=== PATIENT | female | born 1945 | race Caucasian/White ===

== ENCOUNTER 2017-01-08 11:24 | Day surgery (SDC) | payer OTHER ==
[2017-01-08 12:39] VITALS: BMI 29.2
[2017-01-08] MEDS ORDERED: LIDOCAINE HCL/PF 2% SDV 5ML VIAL ONE (13:33)
[2017-01-08] MEDS ORDERED: PROPOFOL 20 ML ONE ×2 (13:33)
[2017-01-08 14:10] VITALS: TEMP 97.7
[2017-01-08 14:40] VITALS: BP 115/53; PULSE 68
--- NOTE | 2017-01-10 11:00 | PATH ---
Surgical Pathology Report Patient Name: SRAVAN HOLLIS [facility]. Rec. #: [id number] /Age/Gender: 1945 (Age: 71) / F Account: [id number] Location: U-ENDOSCOPY Taken: 01/08/2017 Received: 01/09/2017 Reported: 01/10/2017 Physicians: Edgardo Dias M.D. Specimen(s) Received A: BX GASTRIC CARDIA B: BX GASTRIC BODY Clinical History Erosive gastritis, hiatal hernia Final Diagnosis A. STOMACH, CARDIA, BIOPSY: MODERATE CHRONIC ACTIVE GASTRITIS WITH INTESTINAL METAPLASIA. NO DYSPLASIA IDENTIFIED. IMMUNOSTAIN FOR H. PYLORI IS POSITIVE (MANY ORGANISMS). B. STOMACH, BODY, BIOPSY: MODERATE TO SEVERE CHRONIC ACTIVE GASTRITIS WITH INTESTINAL METAPLASIA. NO DYSPLASIA IDENTIFIED. IMMUNOSTAIN FOR H. PYLORI IS POSITIVE (MANY ORGANISMS). Electronically Signed Isaac Reyez M.D. Gross Description A. Received in formalin, labeled "biopsy gastric cardia" is a rasheed, irregular portion of soft tissue measuring 0.3 cm. in greatest dimension. The specimen is submitted in toto in one cassette. B. Received in formalin, labeled "biopsy gastric body" is a rasheed, irregular portion of soft tissue measuring 0.3 cm. in greatest dimension. The specimen is submitted in toto in one cassette. 01/09/2017 saudi01/09/2017
== END 2017-01-08 15:04 | disposition home or self-care (01) ==
LOC: JASU-ENDO 11:24
PROVIDERS: ATTEND Internal Medicine Gastroenterology
PROC: 0DB68ZX Excision of Stomach, Via Natural or Artificial Opening Endoscopic, Diagnostic (ICD-10-PCS; principal; 2017-01-08 12:30)
DX: K29.70 Gastritis, unspecified, without bleeding (principal); K44.9 Diaphragmatic hernia without obstruction or gangrene; K25.9 Gastric ulcer, unspecified as acute or chronic, without hemorrhage or perforation
CPT/HCPCS: 88305-TC; 88342-TC

== ENCOUNTER 2021-07-28 14:38 | Inpatient (IN) | payer OTHER ==
[2021-07-28] MEDS ORDERED: DEXAMETHASONE SOD PHOSPHATE 10 MG/1 ML VIAL IVPUSH ONE (15:48)
[2021-07-28] MEDS ORDERED: DEXAMETHASONE SOD PHOSPHATE 10 MG/1 ML VIAL ONE (16:19)
[2021-07-28 16:22] LABS: BASO % 0.3 % (0-2.0); HEMATOCRIT 36.5 % (32.4-45.2); HEMOGLOBIN 12.9 GM/dL (10.7-15.3); LYMPH % 13.1 % (8-40); MCH 31.7 pg (25.7-33.7); MCHC 35.3 g/dl (32.0-36.0); MEAN CELL VOLUME 89.9 fl (80-96); MONO % 12.8 % (3.8-10.2); NEUT % 73.8 % (42.8-82.8); PLATELET COUNT 145 10^3/uL (134-434); RBC 4.06 M/mm3 (3.60-5.2)
[2021-07-28 16:30] LABS: INR 1.3 (0.83-1.09); PROTHROMBIN TIME (PATIENT) 14.6 SEC (9.7-13.0)
[2021-07-28 16:33] LABS: ACTIVATED PTT 34.4 SECONDS (25.2-36.5)
[2021-07-28 16:35] LABS: VENOUS BASE EXCESS -4.1 mmol/L (-2-2); VENOUS O2 SATURATION 55.9 % (70-80); VENOUS PCO2 32.7 mmHg (38-52); VENOUS PH 7.399 (7.310-7.410)
[2021-07-28 16:37] LABS: CHLORIDE 105 mmol/L (98-107); SODIUM 137 mmol/L (136-145)
[2021-07-28 16:39] LABS: CALCIUM 8.7 mg/dL (8.5-10.1)
[2021-07-28 16:40] LABS: ALBUMIN 3.4 g/dl (3.4-5.0); ANION GAP 12 MMOL/L (8-16); BLOOD UREA NITROGEN 51.2 mg/dL (7-18); CO2 20 mmol/L (21-32); GLUCOSE,RANDOM 96 mg/dL (74-106)
[2021-07-28 16:42] LABS: BILIRUBIN,DIRECT 0.3 mg/dL (0.0-0.2); CREATININE 1.8 mg/dL (0.55-1.3)
[2021-07-28 16:43] LABS: SGOT/AST 102 U/L (15-37); SGPT/ALT 53 U/L (13-61)
[2021-07-28 16:44] LABS: BILIRUBIN,TOTAL 0.5 mg/dL (0.2-1); LDH 532 U/L (84-246); TOT PROT 7.8 g/dl (6.4-8.2)
[2021-07-28 16:45] LABS: ALK PHOS 89 U/L (45-117)
[2021-07-28] MEDS ORDERED: LACTATED RINGERS SOLUTION 1000 ML INFUS.BAG IV ONE (16:45)
[2021-07-28] MEDS: SODIUM CHLORIDE 1,000 ML IV SCH (17:35)
[2021-07-28] MEDS ORDERED: ALBUTEROL SO4 HFA INHALER IH PRN (18:50)
[2021-07-28] MEDS ORDERED: ACETAMINOPHEN 325 MG TABLET (FP) PO PRN (19:00)
[2021-07-28] MEDS ORDERED: OSELTAMIVIR PHOSPHATE 75 MG CAPSULE PO SCH ×2 (22:00)
[2021-07-28] MEDS: HEPARIN NA (PORCINE) 5,000 UNITS/ML 1ML VIAL SQ SCH (23:10)
[2021-07-29] MEDS: BUDESONIDE/FORMETEROL FUMARATE 80/4.5 mcg INHALER IH SCH ×3 (01:10→22:10)
[2021-07-29] MEDS: OSELTAMIVIR PHOSPHATE 30 MG CAPSULE PO SCH ×3 (01:10→22:10)
[2021-07-29] MEDS: HEPARIN NA (PORCINE) 5,000 UNITS/ML 1ML VIAL SQ SCH ×3 (05:42→22:10)
[2021-07-29] MEDS ORDERED: guaiFENesin 200 MG/10 ML 10 ML UNIT-DOSE CUPS PO PRN (05:43)
[2021-07-29] MEDS: DEXAMETHASONE 4 MG TABLET (FP) PO SCH (11:27)
[2021-07-29 12:27] LABS: BASO % 0.1 % (0-2.0); HEMATOCRIT 36.8 % (32.4-45.2); HEMOGLOBIN 12.8 GM/dL (10.7-15.3); LYMPH % 10.7 % (8-40); MCH 31.4 pg (25.7-33.7); MCHC 34.7 g/dl (32.0-36.0); MEAN CELL VOLUME 90.5 fl (80-96); MEAN PLT VOLUME 10.2 fl (7.5-11.1); MONO % 4.9 % (3.8-10.2); NEUT % 84.3 % (42.8-82.8); PLATELET COUNT 162 10^3/uL (134-434); RBC 4.07 M/mm3 (3.60-5.2); RDW 12.9 % (11.6-15.6); WHITE BLOOD COUNT 7.5 K/mm3 (4.0-10.0)
[2021-07-29] MEDS ORDERED: REMDESIVIR 200 MG in SODIUM CHLORIDE 250 ML IVPB ONE ×2 (13:00→16:00)
[2021-07-29 13:12] LABS: ALBUMIN 2.9 g/dl (3.4-5.0); BLOOD UREA NITROGEN 31.4 mg/dL (7-18); CALCIUM 8.5 mg/dL (8.5-10.1); MAGNESIUM 2.4 mg/dL (1.8-2.4)
[2021-07-29 13:15] LABS: CREATININE 0.9 mg/dL (0.55-1.3)
[2021-07-29 13:17] LABS: BILIRUBIN,TOTAL 0.4 mg/dL (0.2-1); TOT PROT 6.9 g/dl (6.4-8.2)
[2021-07-29] MEDS ORDERED: AZTREONAM 0.5 GM in DEXTROSE 5%-WATER - 50 ML IVPB ONE (16:54)
[2021-07-29] MEDS: SODIUM CHLORIDE 1,000 ML IV SCH (17:25)
[2021-07-29] MEDS ORDERED: PT OWN MED DRAWER 7, Y5N ONE (22:08)
[2021-07-30] MEDS: HEPARIN NA (PORCINE) 5,000 UNITS/ML 1ML VIAL SQ SCH (06:27)
[2021-07-30] MEDS ORDERED: PT OWN MED DRAWER 7, Y5N ONE ×2 (10:17→21:17)
[2021-07-30] MEDS: DEXAMETHASONE 4 MG TABLET (FP) PO SCH (10:18)
[2021-07-30] MEDS: OSELTAMIVIR PHOSPHATE 30 MG CAPSULE PO SCH ×2 (10:19→21:26)
[2021-07-30] MEDS: BUDESONIDE/FORMETEROL FUMARATE 80/4.5 mcg INHALER IH SCH ×2 (10:20→21:25)
[2021-07-30] MEDS ORDERED: TOCILIZUMAB (ACTEMRA) 200 MG/10 ML VIAL IVPB ONE (11:45)
[2021-07-30] MEDS ORDERED: TOCILIZUMAB IVPB ONE (12:30)
[2021-07-30] MEDS ORDERED: SODIUM CHLORIDE IVPB ONE (12:30)
[2021-07-30] MEDS ORDERED: REMDESIVIR 100 MG in SODIUM CHLORIDE 250 ML IVPB SCH (13:00)
[2021-07-30] MEDS: REMDESIVIR 100 MG in SODIUM CHLORIDE 250 ML IVPB SCH (14:03)
[2021-07-30] MEDS: ENOXAPARIN NA (PORCINE) 40 MG/0.4 ML DISP.SYRIN SQ SCH (21:25)
[2021-07-30] MEDS: SODIUM CHLORIDE 1,000 ML IV SCH (21:26)
[2021-07-31] MEDS ORDERED: LORazepam 2 MG/ML SDV VIAL IVPUSH ONE ×2 (03:03→05:53)
[2021-07-31 07:21] LABS: ARTERIAL BLD GAS O2 SATURATION 95.9 % (95-98); ARTERIAL BLOOD GAS BASE EXCESS -3.9 mmol/L (-2-2); ARTERIAL BLOOD GAS PO2 89.8 mmHg (80-100); ARTERIAL BLOOD GAS pH 7.289 (7.350-7.450)
[2021-07-31 07:25] LABS: ALLENS TEST POSITIVE; VENT MODE S/T; VENT RATE 14
[2021-07-31] MEDS ORDERED: DEXMEDETOMIDINE IN 0.9 % NACL 400 MCG/100 ML VIAL IVPB SCH (09:00)
[2021-07-31] MEDS: MUPIROCIN 2% TOPICAL OINTMENT FOR DECOLONIZATION NS SCH ×2 (09:51→20:59)
[2021-07-31] MEDS: BUDESONIDE/FORMETEROL FUMARATE 80/4.5 mcg INHALER IH SCH ×2 (09:52→20:59)
[2021-07-31] MEDS: ENOXAPARIN NA (PORCINE) 40 MG/0.4 ML DISP.SYRIN SQ SCH ×2 (09:52→20:59)
[2021-07-31] MEDS ORDERED: DEXAMETHASONE SOD PHOSPHATE 10 MG/1 ML VIAL IVPUSH SCH (10:00)
[2021-07-31 11:30] LABS: HEMOGLOBIN 12.3 GM/dL (10.7-15.3); MCH 31.3 pg (25.7-33.7); MCHC 34.1 g/dl (32.0-36.0); MEAN CELL VOLUME 91.9 fl (80-96); MEAN PLT VOLUME 10.1 fl (7.5-11.1); PLATELET COUNT 220 10^3/uL (134-434); RBC 3.91 M/mm3 (3.60-5.2); RDW 13.1 % (11.6-15.6); WHITE BLOOD COUNT 12.9 K/mm3 (4.0-10.0)
[2021-07-31 11:58] LABS: CALCIUM 7.3 mg/dL (8.5-10.1)
[2021-07-31 11:59] LABS: BLOOD UREA NITROGEN 30.7 mg/dL (7-18)
[2021-07-31 12:03] LABS: BILIRUBIN,TOTAL 0.7 mg/dL (0.2-1); TOT PROT 5.4 g/dl (6.4-8.2)
[2021-07-31 12:37] LABS: ANISOCYTOSIS 1+; MACROCYTOSIS 1+; OVALOCYTE 1+; PLATELET ESTIMATE NORMAL
[2021-07-31] MEDS ORDERED: DOPAMINE 400 MG/D5W - 400,000 MCG/250 ML INFUS.BAG IVPB ONE (13:17)
[2021-07-31] MEDS ORDERED: PHENYLEPHRINE HCL 10 MG/1 ML SINGLE DOSE VIAL ONE (13:19)
[2021-07-31] MEDS ORDERED: LORazepam 2 MG/ML SDV VIAL ONE (13:42)
[2021-07-31] MEDS ORDERED: HALOPERIDOL LACTATE 5 MG/ML IM ONE (14:15)
[2021-07-31] MEDS ORDERED: HALOPERIDOL LACTATE 5 MG/ML IM PRN (14:19)
[2021-07-31] MEDS: OSELTAMIVIR PHOSPHATE 30 MG CAPSULE PO SCH ×2 (14:41→20:59)
[2021-07-31] MEDS ORDERED: PT OWN MED DRAWER 7, Y5N ONE (14:45)
[2021-07-31] MEDS: REMDESIVIR 100 MG in SODIUM CHLORIDE 250 ML IVPB SCH (14:45)
[2021-07-31 15:34] LABS: ARTERIAL BLD GAS O2 SATURATION 90.9 % (95-98); ARTERIAL BLOOD GAS BASE EXCESS -6.2 mmol/L (-2-2); ARTERIAL BLOOD GAS PO2 65.2 mmHg (80-100); ARTERIAL BLOOD GAS pH 7.302 (7.350-7.450)
[2021-07-31 15:36] LABS: VENT RATE 20
[2021-07-31] MEDS ORDERED: SODIUM CHLORIDE 0.45% 1,000 ML IV SCH (15:45)
[2021-07-31 19:06] LABS: EPI CELLS >36 /uL (0-25.1); HYALINE CASTS 8 /uL (0-3.1); PH,URINE 5.5 (5.0-8.0); URINE APPEARANCE CLOUDY; URINE BACTERIA 31 /uL (0-1359); URINE BILIRUBIN NEGATIVE (NEGATIVE); URINE COLOR YELLOW; URINE GLUCOSE (UA) TRACE (NEGATIVE); URINE KETONE NEGATIVE (NEGATIVE); URINE LEUK ESTERASE NEGATIVE (NEGATIVE); URINE NITRITE NEGATIVE (NEGATIVE); URINE PROTEIN 1+ (NEGATIVE); URINE RBC 337 /uL (0-23.9); URINE WBC 43 /uL (0-25.8)
[2021-07-31] MEDS: DOPAMINE 400 MG/D5W - 400,000 MCG/250 ML INFUS.BAG IVPB SCH (19:34)
[2021-07-31] MEDS: CHLORHEXIDINE GLUCONATE 4% CLEANSER FOR DECOLONIZATION TP SCH (20:59)
[2021-07-31 22:39] LABS: ARTERIAL BLD GAS O2 SATURATION 89.3 % (95-98); ARTERIAL BLOOD GAS BASE EXCESS -5.6 mmol/L (-2-2); ARTERIAL BLOOD GAS PO2 58.2 mmHg (80-100); ARTERIAL BLOOD GAS pH 7.353 (7.350-7.450)
[2021-07-31] MEDS ORDERED: MIDAZOLAM IN 0.9 % SOD.CHLORID 1 MG/1 ML PLAST..BAG ONE (22:57)
[2021-07-31] MEDS ORDERED: PROPOFOL 1,000,000 MCG/100 ML VIAL IVPUSH SCH (23:00)
[2021-07-31] MEDS: MIDAZOLAM IN 0.9 % SOD.CHLORID 100 MG/100 ML PLAST..BAG IVPB SCH (23:00)
[2021-07-31] MEDS ORDERED: PROPOFOL 1,000,000 MCG/100 ML VIAL ONE (23:16)
[2021-07-31] MEDS: NOREPINEPHRINE BITARTRATE 16,000 MCG in DEXTROSE 5%-WATER - 16,000 MCG/500 ML INFUS.BAG IVPB SCH (23:30)
[2021-07-31] MEDS ORDERED: FENTANYL NS IVPB 500 MCG/100 ML BAG IVPB ONE (23:44)
[2021-08-01 01:17] LABS: ARTERIAL BLD GAS O2 SATURATION 92.5 % (95-98); ARTERIAL BLOOD GAS BASE EXCESS -8.9 mmol/L (-2-2); ARTERIAL BLOOD GAS PO2 75.4 mmHg (80-100); ARTERIAL BLOOD GAS pH 7.229 (7.350-7.450)
[2021-08-01] MEDS ORDERED: LACTATED RINGERS SOLUTION 1,000 ML/1,000 ML INFUS.BAG IV ONE (01:17)
[2021-08-01 01:19] LABS: ALLENS TEST POSITIVE; VENT MODE A/C
[2021-08-01 01:20] LABS: VENT RATE 18
[2021-08-01] MEDS: VECURONIUM BROMIDE 100 MG/100 ML BAG IVPB SCH (01:22)
[2021-08-01] MEDS ORDERED: VASOPRESSIN 20 UNITS/ML VIAL IV ONE (03:00)
[2021-08-01] MEDS: VASOPRESSIN 40 UNITS/100 ML BAG IV SCH (03:08)
[2021-08-01 06:59] LABS: HEMATOCRIT 38.3 % (32.4-45.2); HEMOGLOBIN 13.2 GM/dL (10.7-15.3); MCH 31.6 pg (25.7-33.7); MCHC 34.3 g/dl (32.0-36.0); MEAN PLT VOLUME 10.4 fl (7.5-11.1); PLATELET COUNT 292 10^3/uL (134-434); RBC 4.17 M/mm3 (3.60-5.2); RDW 13.3 % (11.6-15.6)
[2021-08-01 07:00] LABS: ARTERIAL BLD GAS O2 SATURATION 96.6 % (95-98); ARTERIAL BLOOD GAS BASE EXCESS -10.3 mmol/L (-2-2); ARTERIAL BLOOD GAS PO2 113.6 mmHg (80-100)
[2021-08-01 07:10] LABS: WHITE BLOOD COUNT 32.4 K/mm3 (4.0-10.0)
[2021-08-01 07:14] LABS: ALLENS TEST POSITIVE; ARTERIAL BLOOD GAS pH 7.134 (7.350-7.450); VENT MODE A/C; VENT RATE 18
[2021-08-01 07:15] LABS: BLOOD UREA NITROGEN 43.8 mg/dL (7-18); CALCIUM 8.1 mg/dL (8.5-10.1)
[2021-08-01 07:16] LABS: MAGNESIUM 2.3 mg/dL (1.8-2.4)
[2021-08-01 07:18] LABS: CREATININE 1.1 mg/dL (0.55-1.3)
[2021-08-01 07:20] LABS: BILIRUBIN,TOTAL 0.5 mg/dL (0.2-1); TOT PROT 6.2 g/dl (6.4-8.2)
[2021-08-01 07:57] LABS: ALBUMIN 2.6 g/dl (3.4-5.0)
[2021-08-01] MEDS ORDERED: PT OWN MED DRAWER 7, Y5N ONE ×3 (07:57→21:17)
[2021-08-01 08:46] LABS: ANISOCYTOSIS 0; HELMET CELLS 0; HOWELL-JOLLY BODIES 0; MACROCYTOSIS 0; OVALOCYTE 0; PLATELET ESTIMATE NORMAL; ROULEAU 0; SICKELED CELLS 0; TARGET CELLS 0; TEAR DROP CELLS 0; TOXIC GRANULATION 0
[2021-08-01] MEDS ORDERED: DEXAMETHASONE SOD PHOSPHATE 10 MG/1 ML VIAL IVPB SCH (09:30)
[2021-08-01] MEDS ORDERED: MEROPENEM 1 GM VIAL (RESTRICTED TO ID) IVPB ONE ×2 (09:34→21:16)
[2021-08-01] MEDS ORDERED: DEXTROSE 5%-WATER 100 ML IVPB ONE ×2 (09:34→21:16)
[2021-08-01] MEDS: DEXAMETHASONE SOD PHOSPHATE 10 MG/1 ML VIAL IVPB SCH (09:45)
[2021-08-01] MEDS: FLUDROCORTISONE ACETATE 0.1 MG TABLET (FP) PO SCH (09:46)
[2021-08-01] MEDS: ENOXAPARIN NA (PORCINE) 40 MG/0.4 ML DISP.SYRIN SQ SCH ×2 (09:46→22:00)
[2021-08-01] MEDS: OSELTAMIVIR PHOSPHATE 30 MG CAPSULE PO SCH ×2 (09:46→22:01)
[2021-08-01] MEDS: BUDESONIDE/FORMETEROL FUMARATE 80/4.5 mcg INHALER IH SCH ×2 (09:47→22:01)
[2021-08-01] MEDS: PROPOFOL 1,000,000 MCG/100 ML VIAL IVPB SCH (09:48)
[2021-08-01] MEDS: MEROPENEM 1 GM in DEXTROSE 5%-WATER 100 ML IVPB SCH ×2 (09:48→22:00)
[2021-08-01] MEDS: MUPIROCIN 2% TOPICAL OINTMENT FOR DECOLONIZATION NS SCH ×2 (09:49→22:00)
[2021-08-01] MEDS ORDERED: FAMOTIDINE 20 MG TABLET NGT SCH (11:15)
[2021-08-01 12:34] LABS: EPI CELLS 6 /uL (0-25.1); HYALINE CASTS 2 /uL (0-3.1); PH,URINE 5.5 (5.0-8.0); URINE APPEARANCE CLOUDY; URINE BACTERIA 6 /uL (0-1359); URINE BILIRUBIN NEGATIVE (NEGATIVE); URINE COLOR YELLOW; URINE GLUCOSE (UA) NEGATIVE (NEGATIVE); URINE KETONE TRACE (NEGATIVE); URINE LEUK ESTERASE NEGATIVE (NEGATIVE); URINE NITRITE NEGATIVE (NEGATIVE); URINE PROTEIN 1+ (NEGATIVE); URINE RBC 88 /uL (0-23.9); URINE WBC 9 /uL (0-25.8)
[2021-08-01] MEDS: PANTOPRAZOLE SODIUM 40 MG VIAL IVPUSH SCH (13:55)
[2021-08-01] MEDS: REMDESIVIR 100 MG in SODIUM CHLORIDE 250 ML IVPB SCH (15:44)
[2021-08-01 20:01] LABS: HIV INTERPRETATION NEGATIVE (NEGATIVE)
[2021-08-01] MEDS: CHLORHEXIDINE GLUCONATE 4% CLEANSER FOR DECOLONIZATION TP SCH (22:00)
[2021-08-01] MEDS: DOPAMINE 400 MG/D5W - 400,000 MCG/250 ML INFUS.BAG IVPB SCH (22:00)
[2021-08-02 06:28] LABS: ARTERIAL BLD GAS O2 SATURATION 94.1 % (95-98); ARTERIAL BLOOD GAS BASE EXCESS -5.6 mmol/L (-2-2); ARTERIAL BLOOD GAS PO2 85.4 mmHg (80-100); ARTERIAL BLOOD GAS pH 7.208 (7.350-7.450)
[2021-08-02] MEDS: VECURONIUM BROMIDE 100 MG/100 ML BAG IVPB SCH (06:36)
[2021-08-02] MEDS: MIDAZOLAM IN 0.9 % SOD.CHLORID 100 MG/100 ML PLAST..BAG IVPB SCH ×2 (06:36→10:05)
[2021-08-02] MEDS: NOREPINEPHRINE BITARTRATE 16,000 MCG in DEXTROSE 5%-WATER - 16,000 MCG/500 ML INFUS.BAG IVPB SCH (06:36)
[2021-08-02] MEDS: VASOPRESSIN 40 UNITS/100 ML BAG IV SCH (06:36)
[2021-08-02] MEDS: PROPOFOL 1,000,000 MCG/100 ML VIAL IVPB SCH ×2 (06:36→17:30)
[2021-08-02 06:49] LABS: ALLENS TEST POSITIVE; VENT MODE A/C; VENT RATE 24
[2021-08-02 07:20] LABS: HEMATOCRIT 39.5 % (32.4-45.2); HEMOGLOBIN 12.6 GM/dL (10.7-15.3); MCH 30.1 pg (25.7-33.7); MEAN PLT VOLUME 10.1 fl (7.5-11.1); PLATELET COUNT 287 10^3/uL (134-434); RDW 13.3 % (11.6-15.6)
[2021-08-02 07:31] LABS: BLOOD UREA NITROGEN 35.3 mg/dL (7-18); CALCIUM 8.1 mg/dL (8.5-10.1); MAGNESIUM 2.4 mg/dL (1.8-2.4)
[2021-08-02 07:35] LABS: BILIRUBIN,TOTAL 0.4 mg/dL (0.2-1)
[2021-08-02 07:37] LABS: WHITE BLOOD COUNT 32.8 K/mm3 (4.0-10.0)
[2021-08-02 07:41] LABS: ALBUMIN 2.6 g/dl (3.4-5.0)
[2021-08-02] MEDS ORDERED: ALBUTEROL SO4 HFA INHALER IH PRN (08:00)
[2021-08-02] MEDS ORDERED: guaiFENesin 200 MG/10 ML 10 ML UNIT-DOSE CUPS PO PRN (08:00)
[2021-08-02] MEDS ORDERED: INSULIN (LEVEMIR) 100 UNITS/ML UNITS SQ ONE (08:41)
[2021-08-02 08:54] LABS: ANISOCYTOSIS 0; HELMET CELLS 0; HOWELL-JOLLY BODIES 0; MACROCYTOSIS 0; OVALOCYTE 0; PLATELET ESTIMATE NORMAL; ROULEAU 0; SICKELED CELLS 0; TARGET CELLS 0; TEAR DROP CELLS 0; TOXIC GRANULATION 0
[2021-08-02] MEDS ORDERED: OSELTAMIVIR PHOSPHATE 30 MG CAPSULE PO SCH (10:00)
[2021-08-02] MEDS ORDERED: PT OWN MED DRAWER 7, Y5N ONE (10:01)
[2021-08-02] MEDS: MUPIROCIN 2% TOPICAL OINTMENT FOR DECOLONIZATION NS SCH ×2 (10:02→22:37)
[2021-08-02] MEDS: DEXAMETHASONE SOD PHOSPHATE 10 MG/1 ML VIAL IVPB SCH (10:03)
[2021-08-02] MEDS: PANTOPRAZOLE SODIUM 40 MG VIAL IVPUSH SCH (10:06)
[2021-08-02] MEDS: BUDESONIDE/FORMETEROL FUMARATE 80/4.5 mcg INHALER IH SCH ×2 (10:06→22:38)
[2021-08-02] MEDS: FLUDROCORTISONE ACETATE 0.1 MG TABLET (FP) PO SCH (10:06)
[2021-08-02] MEDS: ENOXAPARIN NA (PORCINE) 40 MG/0.4 ML DISP.SYRIN SQ SCH ×2 (10:06→22:37)
[2021-08-02] MEDS: INSULIN SLIDING SCALE (NOVOLOG) 1 VIAL SQ SCH ×3 (12:19→22:37)
[2021-08-02] MEDS ORDERED: REMDESIVIR 100 MG in SODIUM CHLORIDE 250 ML IVPB SCH (13:00)
[2021-08-02] MEDS ORDERED: MEROPENEM 1 GM VIAL (RESTRICTED TO ID) IVPB ONE (14:25)
[2021-08-02] MEDS ORDERED: DEXTROSE 5%-WATER 100 ML IVPB ONE (14:26)
[2021-08-02] MEDS: MEROPENEM 1 GM in DEXTROSE 5%-WATER 100 ML IVPB SCH (14:32)
[2021-08-02] MEDS: AMINO ACIDS/PROTEIN HYDROLYS 30 ML LIQUID.PKT GT SCH (17:31)
[2021-08-02] MEDS: CHLORHEXIDINE GLUCONATE 4% CLEANSER FOR DECOLONIZATION TP SCH (22:37)
[2021-08-03] MEDS ORDERED: MEROPENEM 1 GM VIAL (RESTRICTED TO ID) IVPB ONE ×2 (01:06→13:16)
[2021-08-03] MEDS ORDERED: DEXTROSE 5%-WATER 100 ML IVPB ONE ×2 (01:07→13:16)
[2021-08-03] MEDS: MEROPENEM 1 GM in DEXTROSE 5%-WATER 100 ML IVPB SCH ×2 (01:08→13:30)
[2021-08-03] MEDS: NOREPINEPHRINE BITARTRATE 16,000 MCG in DEXTROSE 5%-WATER - 16,000 MCG/500 ML INFUS.BAG IVPB SCH ×2 (03:46→16:27)
[2021-08-03] MEDS: MIDAZOLAM IN 0.9 % SOD.CHLORID 100 MG/100 ML PLAST..BAG IVPB SCH ×2 (03:46→16:27)
[2021-08-03] MEDS: PROPOFOL 1,000,000 MCG/100 ML VIAL IVPB SCH ×4 (03:48→23:20)
[2021-08-03 06:31] LABS: ARTERIAL BLD GAS O2 SATURATION 91.5 % (95-98); ARTERIAL BLOOD GAS BASE EXCESS 2.1 mmol/L (-2-2); ARTERIAL BLOOD GAS PO2 63.9 mmHg (80-100); ARTERIAL BLOOD GAS pH 7.367 (7.350-7.450)
[2021-08-03] MEDS: INSULIN SLIDING SCALE (NOVOLOG) 1 VIAL SQ SCH ×4 (06:37→21:44)
[2021-08-03 06:44] LABS: VENT MODE V-A/C; VENT RATE 24
[2021-08-03 07:24] LABS: HEMATOCRIT 36.2 % (32.4-45.2); HEMOGLOBIN 12.1 GM/dL (10.7-15.3); MCH 30.9 pg (25.7-33.7); MCHC 33.5 g/dl (32.0-36.0); MEAN CELL VOLUME 92.3 fl (80-96); MEAN PLT VOLUME 10.5 fl (7.5-11.1); PLATELET COUNT 230 10^3/uL (134-434); RBC 3.92 M/mm3 (3.60-5.2)
[2021-08-03 07:37] LABS: WHITE BLOOD COUNT 21.3 K/mm3 (4.0-10.0)
[2021-08-03 07:52] LABS: CALCIUM 8.3 mg/dL (8.5-10.1)
[2021-08-03 07:54] LABS: BLOOD UREA NITROGEN 34.7 mg/dL (7-18); MAGNESIUM 2.4 mg/dL (1.8-2.4)
[2021-08-03 07:56] LABS: CREATININE 0.9 mg/dL (0.55-1.3); PHOSPHOROUS 1.6 mg/dL (2.5-4.9)
[2021-08-03 07:58] LABS: BILIRUBIN,TOTAL 0.4 mg/dL (0.2-1); TOT PROT 5.3 g/dl (6.4-8.2)
[2021-08-03 08:03] LABS: ALBUMIN 2.4 g/dl (3.4-5.0)
[2021-08-03] MEDS: AMINO ACIDS/PROTEIN HYDROLYS 30 ML LIQUID.PKT GT SCH ×2 (08:43→17:07)
[2021-08-03 08:51] LABS: ANISOCYTOSIS 0; MACROCYTOSIS 0; PLATELET ESTIMATE NORMAL; ROULEAU 1+
[2021-08-03] MEDS ORDERED: PT OWN MED DRAWER 7, Y5N ONE (09:58)
[2021-08-03] MEDS: FLUDROCORTISONE ACETATE 0.1 MG TABLET (FP) PO SCH (09:59)
[2021-08-03] MEDS: DEXAMETHASONE SOD PHOSPHATE 10 MG/1 ML VIAL IVPB SCH (09:59)
[2021-08-03] MEDS: ENOXAPARIN NA (PORCINE) 40 MG/0.4 ML DISP.SYRIN SQ SCH ×2 (09:59→21:43)
[2021-08-03] MEDS: MUPIROCIN 2% TOPICAL OINTMENT FOR DECOLONIZATION NS SCH ×2 (09:59→21:44)
[2021-08-03] MEDS: PANTOPRAZOLE SODIUM 40 MG VIAL IVPUSH SCH (10:00)
[2021-08-03] MEDS: BUDESONIDE/FORMETEROL FUMARATE 80/4.5 mcg INHALER IH SCH ×2 (10:00→21:44)
[2021-08-03] MEDS: REMDESIVIR 100 MG in SODIUM CHLORIDE 250 ML IVPB SCH (13:30)
[2021-08-03] MEDS ORDERED: SODIUM PHOSPHATE - 20 MM in DEXTROSE 5%-WATER - 250 ML IVPB ONE (15:15)
[2021-08-03] MEDS: CHLORHEXIDINE GLUCONATE 4% CLEANSER FOR DECOLONIZATION TP SCH (21:44)
[2021-08-03] MEDS ORDERED: DEXTROSE 50%-WATER - 25 GM/50 ML VIAL IVPUSH ONE (21:52)
[2021-08-03] MEDS: INSULIN (LEVEMIR) 100 UNITS/ML UNITS SQ SCH (22:50)
[2021-08-04] MEDS ORDERED: MEROPENEM 1 GM VIAL (RESTRICTED TO ID) IVPB ONE ×2 (01:33→13:15)
[2021-08-04] MEDS ORDERED: DEXTROSE 5%-WATER 100 ML IVPB ONE ×2 (01:33→13:16)
[2021-08-04] MEDS: MEROPENEM 1 GM in DEXTROSE 5%-WATER 100 ML IVPB SCH ×2 (01:35→13:22)
[2021-08-04] MEDS: MIDAZOLAM IN 0.9 % SOD.CHLORID 100 MG/100 ML PLAST..BAG IVPB SCH ×3 (05:20→13:22)
[2021-08-04] MEDS: NOREPINEPHRINE BITARTRATE 16,000 MCG in DEXTROSE 5%-WATER - 16,000 MCG/500 ML INFUS.BAG IVPB SCH (05:23)
[2021-08-04] MEDS: PROPOFOL 1,000,000 MCG/100 ML VIAL IVPB SCH ×3 (05:24→21:29)
[2021-08-04] MEDS: INSULIN SLIDING SCALE (NOVOLOG) 1 VIAL SQ SCH ×5 (06:07→22:13)
[2021-08-04 06:56] LABS: HEMATOCRIT 35.9 % (32.4-45.2); HEMOGLOBIN 11.9 GM/dL (10.7-15.3); MCH 30.8 pg (25.7-33.7); MCHC 33.1 g/dl (32.0-36.0); MEAN CELL VOLUME 93.2 fl (80-96); MEAN PLT VOLUME 10.3 fl (7.5-11.1); PLATELET COUNT 228 10^3/uL (134-434); RBC 3.85 M/mm3 (3.60-5.2); RDW 13.6 % (11.6-15.6); WHITE BLOOD COUNT 16.5 K/mm3 (4.0-10.0)
[2021-08-04 07:11] LABS: CHLORIDE 106 mmol/L (98-107); SODIUM 141 mmol/L (136-145)
[2021-08-04 07:15] LABS: ALBUMIN 2.1 g/dl (3.4-5.0); ANION GAP 4 MMOL/L (8-16); BLOOD UREA NITROGEN 39.2 mg/dL (7-18); CO2 31 mmol/L (21-32); MAGNESIUM 2.3 mg/dL (1.8-2.4)
[2021-08-04 07:18] LABS: CREATININE 0.9 mg/dL (0.55-1.3); PHOSPHOROUS 2.7 mg/dL (2.5-4.9); SGOT/AST 48 U/L (15-37); SGPT/ALT 57 U/L (13-61)
[2021-08-04 07:19] LABS: BILIRUBIN,TOTAL 0.9 mg/dL (0.2-1)
[2021-08-04 07:21] LABS: ALK PHOS 201 U/L (45-117); TOT PROT 5.1 g/dl (6.4-8.2)
[2021-08-04 07:44] LABS: GLUCOSE,RANDOM 423 mg/dL (74-106)
[2021-08-04] MEDS: AMINO ACIDS/PROTEIN HYDROLYS 30 ML LIQUID.PKT GT SCH ×2 (08:55→16:53)
[2021-08-04 08:59] LABS: ANISOCYTOSIS 0; MACROCYTOSIS 0; PLATELET ESTIMATE NORMAL
[2021-08-04] MEDS: MUPIROCIN 2% TOPICAL OINTMENT FOR DECOLONIZATION NS SCH ×2 (09:16→21:34)
[2021-08-04] MEDS: DEXAMETHASONE SOD PHOSPHATE 10 MG/1 ML VIAL IVPB SCH (09:17)
[2021-08-04] MEDS: PANTOPRAZOLE SODIUM 40 MG VIAL IVPUSH SCH (09:18)
[2021-08-04] MEDS: BUDESONIDE/FORMETEROL FUMARATE 80/4.5 mcg INHALER IH SCH ×2 (09:18→21:34)
[2021-08-04] MEDS: ENOXAPARIN NA (PORCINE) 40 MG/0.4 ML DISP.SYRIN SQ SCH ×2 (09:18→21:29)
[2021-08-04] MEDS: FLUDROCORTISONE ACETATE 0.1 MG TABLET (FP) PO SCH (09:18)
[2021-08-04] MEDS: INSULIN (LEVEMIR) 100 UNITS/ML UNITS SQ SCH ×2 (09:19→21:45)
[2021-08-04] MEDS ORDERED: PT OWN MED DRAWER 7, Y5N ONE (13:16)
[2021-08-04] MEDS ORDERED: REMDESIVIR 100 MG in SODIUM CHLORIDE 250 ML IVPB SCH (14:00)
[2021-08-04] MEDS: REMDESIVIR 100 MG in SODIUM CHLORIDE 250 ML IVPB SCH (14:55)
[2021-08-04] MEDS: CHLORHEXIDINE GLUCONATE 4% CLEANSER FOR DECOLONIZATION TP SCH (21:35)
[2021-08-04] MEDS ORDERED: INSULIN REGULAR HUMAN 100 UNITS/ML *VIAL* (FOR IVP) IVPUSH ONE ×3 (21:54→23:52)
[2021-08-04] MEDS ORDERED: INSULIN REGULAR 100 UNITS in SODIUM CHLORIDE 99 ML IVPB SCH ×2 (22:00→22:15)
[2021-08-04 22:54] LABS: CHLORIDE 107 mmol/L (98-107); SODIUM 143 mmol/L (136-145)
[2021-08-04 22:56] LABS: ANION GAP 2 MMOL/L (8-16); BLOOD UREA NITROGEN 46.7 mg/dL (7-18); CALCIUM 8.3 mg/dL (8.5-10.1); CO2 34 mmol/L (21-32)
[2021-08-04 23:00] LABS: CREATININE 0.8 mg/dL (0.55-1.3)
[2021-08-04 23:09] LABS: GLUCOSE,RANDOM 428 mg/dL (74-106)
[2021-08-05] MEDS: INSULIN REGULAR 100 UNITS in SODIUM CHLORIDE 99 ML IVPB SCH (00:13)
[2021-08-05 00:41] LABS: CHLORIDE 107 mmol/L (98-107); SODIUM 142 mmol/L (136-145)
[2021-08-05 00:42] LABS: ANION GAP 3 MMOL/L (8-16); CALCIUM 8.1 mg/dL (8.5-10.1); CO2 32 mmol/L (21-32)
[2021-08-05 00:44] LABS: BLOOD UREA NITROGEN 45.3 mg/dL (7-18)
[2021-08-05 00:46] LABS: CREATININE 0.9 mg/dL (0.55-1.3)
[2021-08-05 00:48] LABS: GLUCOSE,RANDOM 411 mg/dL (74-106)
[2021-08-05] MEDS: NOREPINEPHRINE BITARTRATE 16,000 MCG in DEXTROSE 5%-WATER - 16,000 MCG/500 ML INFUS.BAG IVPB SCH (01:33)
[2021-08-05] MEDS: MIDAZOLAM IN 0.9 % SOD.CHLORID 100 MG/100 ML PLAST..BAG IVPB SCH ×2 (01:33→07:09)
[2021-08-05] MEDS: PROPOFOL 1,000,000 MCG/100 ML VIAL IVPB SCH ×3 (01:34→15:27)
[2021-08-05] MEDS: INSULIN (LEVEMIR) 100 UNITS/ML UNITS SQ SCH ×3 (01:35→22:04)
[2021-08-05] MEDS ORDERED: DEXTROSE 5%-WATER 100 ML IVPB ONE ×2 (01:36→12:58)
[2021-08-05] MEDS ORDERED: MEROPENEM 1 GM VIAL (RESTRICTED TO ID) IVPB ONE ×2 (01:36→12:58)
[2021-08-05] MEDS: MEROPENEM 1 GM in DEXTROSE 5%-WATER 100 ML IVPB SCH ×2 (01:39→13:03)
[2021-08-05 04:30] LABS: CALCIUM 8.2 mg/dL (8.5-10.1)
[2021-08-05 04:32] LABS: BLOOD UREA NITROGEN 44.1 mg/dL (7-18)
[2021-08-05 04:34] LABS: CREATININE 0.8 mg/dL (0.55-1.3)
[2021-08-05] MEDS: INSULIN SLIDING SCALE (NOVOLOG) 1 VIAL SQ SCH ×4 (06:27→22:05)
[2021-08-05 06:57] LABS: MAGNESIUM 2.8 mg/dL (1.8-2.4)
[2021-08-05 07:00] LABS: PHOSPHOROUS 2.9 mg/dL (2.5-4.9)
[2021-08-05 07:11] LABS: HEMOGLOBIN 11.6 GM/dL (10.7-15.3); MCH 30.9 pg (25.7-33.7); MEAN CELL VOLUME 93.5 fl (80-96); MEAN PLT VOLUME 10.5 fl (7.5-11.1); PLATELET COUNT 212 10^3/uL (134-434); RBC 3.74 M/mm3 (3.60-5.2); RDW 13.3 % (11.6-15.6); WHITE BLOOD COUNT 11.8 K/mm3 (4.0-10.0)
[2021-08-05 07:34] LABS: ARTERIAL BLD GAS O2 SATURATION 97.5 % (95-98); ARTERIAL BLOOD GAS BASE EXCESS 7.2 mmol/L (-2-2); ARTERIAL BLOOD GAS PO2 101.4 mmHg (80-100); ARTERIAL BLOOD GAS pH 7.399 (7.350-7.450)
[2021-08-05 08:19] LABS: ALLENS TEST POSITIVE
[2021-08-05 08:20] LABS: VENT MODE A/C; VENT RATE 24
[2021-08-05] MEDS ORDERED: PT OWN MED DRAWER 7, Y5N ONE ×2 (08:51→11:20)
[2021-08-05] MEDS: AMINO ACIDS/PROTEIN HYDROLYS 30 ML LIQUID.PKT GT SCH ×2 (08:56→17:24)
[2021-08-05] MEDS: ENOXAPARIN NA (PORCINE) 40 MG/0.4 ML DISP.SYRIN SQ SCH ×2 (09:00→22:03)
[2021-08-05] MEDS: PANTOPRAZOLE SODIUM 40 MG VIAL IVPUSH SCH (09:00)
[2021-08-05] MEDS: FLUDROCORTISONE ACETATE 0.1 MG TABLET (FP) PO SCH (09:01)
[2021-08-05] MEDS: DEXAMETHASONE SOD PHOSPHATE 10 MG/1 ML VIAL IVPB SCH (09:01)
[2021-08-05] MEDS: BUDESONIDE/FORMETEROL FUMARATE 80/4.5 mcg INHALER IH SCH ×2 (09:02→22:05)
[2021-08-05] MEDS ORDERED: FENTANYL IVPB 500 MCG/100 ML BAG IVPB SCH (11:15)
[2021-08-05] MEDS: FENTANYL NS IVPB 500 MCG/100 ML BAG IVPB SCH ×2 (11:26→15:27)
[2021-08-05] MEDS: REMDESIVIR 100 MG in SODIUM CHLORIDE 250 ML IVPB SCH (13:03)
[2021-08-05] MEDS: CHLORHEXIDINE GLUCONATE 4% CLEANSER FOR DECOLONIZATION TP SCH (22:03)
[2021-08-06] MEDS: INSULIN REGULAR 100 UNITS in SODIUM CHLORIDE 99 ML IVPB SCH (00:20)
[2021-08-06] MEDS: NOREPINEPHRINE BITARTRATE 16,000 MCG in DEXTROSE 5%-WATER - 16,000 MCG/500 ML INFUS.BAG IVPB SCH ×2 (00:31→23:45)
[2021-08-06] MEDS: PROPOFOL 1,000,000 MCG/100 ML VIAL IVPB SCH ×3 (00:31→06:06)
[2021-08-06] MEDS: FENTANYL NS IVPB 500 MCG/100 ML BAG IVPB SCH ×2 (00:32→11:17)
[2021-08-06] MEDS ORDERED: MEROPENEM 1 GM VIAL (RESTRICTED TO ID) IVPB ONE ×2 (01:28→12:55)
[2021-08-06] MEDS ORDERED: DEXTROSE 5%-WATER 100 ML IVPB ONE ×2 (01:29→12:55)
[2021-08-06] MEDS: MEROPENEM 1 GM in DEXTROSE 5%-WATER 100 ML IVPB SCH ×2 (01:34→13:10)
[2021-08-06] MEDS: INSULIN SLIDING SCALE (NOVOLOG) 1 VIAL SQ SCH ×4 (06:05→22:46)
[2021-08-06 08:14] LABS: BASO % 0.1 % (0-2.0); HEMATOCRIT 34.2 % (32.4-45.2); HEMOGLOBIN 11.6 GM/dL (10.7-15.3); LYMPH % 4.7 % (8-40); MCH 31.6 pg (25.7-33.7); MCHC 33.7 g/dl (32.0-36.0); MEAN CELL VOLUME 93.5 fl (80-96); MEAN PLT VOLUME 11.1 fl (7.5-11.1); NEUT % 89.2 % (42.8-82.8); PLATELET COUNT 204 10^3/uL (134-434); RBC 3.66 M/mm3 (3.60-5.2); RDW 13.4 % (11.6-15.6); WHITE BLOOD COUNT 12.9 K/mm3 (4.0-10.0)
[2021-08-06 08:31] LABS: ALBUMIN 2.3 g/dl (3.4-5.0); BLOOD UREA NITROGEN 51.8 mg/dL (7-18)
[2021-08-06 08:32] LABS: MAGNESIUM 2.6 mg/dL (1.8-2.4)
[2021-08-06 08:34] LABS: CREATININE 0.8 mg/dL (0.55-1.3); PHOSPHOROUS 2.9 mg/dL (2.5-4.9)
[2021-08-06 08:35] LABS: TOT PROT 4.9 g/dl (6.4-8.2)
[2021-08-06 08:36] LABS: BILIRUBIN,TOTAL 0.6 mg/dL (0.2-1)
[2021-08-06] MEDS: FLUDROCORTISONE ACETATE 0.1 MG TABLET (FP) PO SCH (09:19)
[2021-08-06] MEDS: PANTOPRAZOLE SODIUM 40 MG VIAL IVPUSH SCH (09:19)
[2021-08-06] MEDS: AMINO ACIDS/PROTEIN HYDROLYS 30 ML LIQUID.PKT GT SCH ×2 (09:19→16:58)
[2021-08-06] MEDS: ENOXAPARIN NA (PORCINE) 40 MG/0.4 ML DISP.SYRIN SQ SCH ×2 (09:19→22:46)
[2021-08-06] MEDS ORDERED: INSULIN (LEVEMIR) 100 UNITS/ML UNITS SQ SCH (10:00)
[2021-08-06] MEDS: DEXAMETHASONE SOD PHOSPHATE 10 MG/1 ML VIAL IVPUSH SCH (11:16)
[2021-08-06] MEDS: INSULIN (LEVEMIR) 100 UNITS/ML UNITS SQ SCH ×2 (11:17→22:45)
[2021-08-06] MEDS: BUDESONIDE/FORMETEROL FUMARATE 80/4.5 mcg INHALER IH SCH ×2 (11:17→22:46)
[2021-08-06] MEDS: REMDESIVIR 100 MG in SODIUM CHLORIDE 250 ML IVPB SCH (14:45)
[2021-08-06] MEDS: SODIUM ZIRCONIUM CYCLOSILICATE (LOKELMA) 5 GM PACKET PO SCH (14:45)
[2021-08-06] MEDS: CHLORHEXIDINE GLUCONATE 4% CLEANSER FOR DECOLONIZATION TP SCH (22:45)
[2021-08-07] MEDS ORDERED: MEROPENEM 1 GM VIAL (RESTRICTED TO ID) IVPB ONE ×2 (01:40→12:17)
[2021-08-07] MEDS ORDERED: DEXTROSE 5%-WATER 100 ML IVPB ONE ×2 (01:41→12:17)
[2021-08-07] MEDS: MEROPENEM 1 GM in DEXTROSE 5%-WATER 100 ML IVPB SCH ×2 (01:50→13:29)
[2021-08-07] MEDS: PROPOFOL 1,000,000 MCG/100 ML VIAL IVPB SCH ×4 (01:58→23:59)
[2021-08-07] MEDS ORDERED: DEXTROSE 50%-WATER - 25 GM/50 ML VIAL IVPUSH ONE (03:46)
[2021-08-07] MEDS ORDERED: INSULIN REGULAR HUMAN 100 UNITS/ML *VIAL IVPUSH ONE (03:46)
[2021-08-07] MEDS ORDERED: DEXTROSE 50%-WATER 25 GM/50 ML DISP.SYRIN ONE (05:04)
[2021-08-07 06:01] LABS: ARTERIAL BLD GAS O2 SATURATION 93.7 % (95-98); ARTERIAL BLOOD GAS BASE EXCESS 7.8 mmol/L (-2-2); ARTERIAL BLOOD GAS PO2 69.6 mmHg (80-100); ARTERIAL BLOOD GAS pH 7.404 (7.350-7.450)
[2021-08-07 06:11] LABS: ALLENS TEST POSITIVE
[2021-08-07 06:12] LABS: VENT MODE A/C; VENT RATE 24
[2021-08-07] MEDS: INSULIN SLIDING SCALE (NOVOLOG) 1 VIAL SQ SCH ×4 (06:57→22:46)
[2021-08-07] MEDS: FENTANYL NS IVPB 500 MCG/100 ML BAG IVPB SCH ×3 (07:22→18:10)
[2021-08-07 07:48] LABS: BASO % 0.2 % (0-2.0); EOS % 0.2 % (0-4.5); HEMATOCRIT 34.4 % (32.4-45.2); HEMOGLOBIN 11.8 GM/dL (10.7-15.3); LYMPH % 6.6 % (8-40); MCH 32.4 pg (25.7-33.7); MCHC 34.4 g/dl (32.0-36.0); MEAN CELL VOLUME 94.1 fl (80-96); MEAN PLT VOLUME 11.1 fl (7.5-11.1); MONO % 6.6 % (3.8-10.2); NEUT % 86.4 % (42.8-82.8); PLATELET COUNT 188 10^3/uL (134-434); RBC 3.65 M/mm3 (3.60-5.2); RDW 13.3 % (11.6-15.6); WHITE BLOOD COUNT 12.2 K/mm3 (4.0-10.0)
[2021-08-07 08:03] LABS: CHLORIDE 103 mmol/L (98-107); SODIUM 142 mmol/L (136-145)
[2021-08-07 08:11] LABS: ALBUMIN 2.1 g/dl (3.4-5.0); ANION GAP 6 MMOL/L (8-16); CALCIUM 7.3 mg/dL (8.5-10.1); CO2 33 mmol/L (21-32); GLUCOSE,RANDOM 247 mg/dL (74-106); MAGNESIUM 2.3 mg/dL (1.8-2.4)
[2021-08-07 08:12] LABS: BLOOD UREA NITROGEN 52.2 mg/dL (7-18)
[2021-08-07 08:14] LABS: CREATININE 0.8 mg/dL (0.55-1.3); PHOSPHOROUS 2.7 mg/dL (2.5-4.9); SGOT/AST 90 U/L (15-37)
[2021-08-07 08:15] LABS: BILIRUBIN,TOTAL 0.7 mg/dL (0.2-1)
[2021-08-07 08:16] LABS: ALK PHOS 184 U/L (45-117)
[2021-08-07 08:19] LABS: SGPT/ALT 92 U/L (13-61)
[2021-08-07] MEDS: DEXAMETHASONE SOD PHOSPHATE 10 MG/1 ML VIAL IVPUSH SCH (09:04)
[2021-08-07] MEDS: AMINO ACIDS/PROTEIN HYDROLYS 30 ML LIQUID.PKT GT SCH ×2 (09:05→17:20)
[2021-08-07] MEDS: PANTOPRAZOLE SODIUM 40 MG VIAL IVPUSH SCH (09:05)
[2021-08-07] MEDS: SODIUM ZIRCONIUM CYCLOSILICATE (LOKELMA) 5 GM PACKET PO SCH (09:05)
[2021-08-07] MEDS: FLUDROCORTISONE ACETATE 0.1 MG TABLET (FP) PO SCH (09:05)
[2021-08-07] MEDS: ENOXAPARIN NA (PORCINE) 40 MG/0.4 ML DISP.SYRIN SQ SCH ×2 (09:06→22:46)
[2021-08-07] MEDS: BUDESONIDE/FORMETEROL FUMARATE 80/4.5 mcg INHALER IH SCH ×2 (09:06→22:46)
[2021-08-07] MEDS: INSULIN (LEVEMIR) 100 UNITS/ML UNITS SQ SCH ×2 (09:10→22:46)
[2021-08-07] MEDS ORDERED: PT OWN MED DRAWER 7, Y5N ONE (12:15)
[2021-08-07] MEDS: REMDESIVIR 100 MG in SODIUM CHLORIDE 250 ML IVPB SCH (13:30)
[2021-08-07] MEDS: NOREPINEPHRINE BITARTRATE 16,000 MCG in DEXTROSE 5%-WATER - 16,000 MCG/500 ML INFUS.BAG IVPB SCH ×2 (14:51→23:45)
[2021-08-07] MEDS: CHLORHEXIDINE GLUCONATE 4% CLEANSER FOR DECOLONIZATION TP SCH (22:45)
[2021-08-08] MEDS ORDERED: MEROPENEM 1 GM VIAL (RESTRICTED TO ID) IVPB ONE ×2 (00:54→15:05)
[2021-08-08] MEDS ORDERED: DEXTROSE 5%-WATER 100 ML IVPB ONE ×2 (00:55→15:06)
[2021-08-08] MEDS: MEROPENEM 1 GM in DEXTROSE 5%-WATER 100 ML IVPB SCH ×2 (01:57→15:00)
[2021-08-08 06:05] LABS: ARTERIAL BLD GAS O2 SATURATION 95.4 % (95-98); ARTERIAL BLOOD GAS BASE EXCESS 4.6 mmol/L (-2-2); ARTERIAL BLOOD GAS PO2 77.6 mmHg (80-100); ARTERIAL BLOOD GAS pH 7.402 (7.350-7.450)
[2021-08-08 06:06] LABS: VENT MODE V-A/C; VENT RATE 24
[2021-08-08] MEDS: INSULIN SLIDING SCALE (NOVOLOG) 1 VIAL SQ SCH ×4 (07:16→22:55)
[2021-08-08 08:09] LABS: BASO % 0.5 % (0-2.0); EOS % 0.4 % (0-4.5); HEMATOCRIT 34.7 % (32.4-45.2); HEMOGLOBIN 11.8 GM/dL (10.7-15.3); LYMPH % 6.2 % (8-40); MEAN CELL VOLUME 94.3 fl (80-96); MEAN PLT VOLUME 11.6 fl (7.5-11.1); MONO % 5.6 % (3.8-10.2); NEUT % 87.3 % (42.8-82.8); PLATELET COUNT 169 10^3/uL (134-434); RBC 3.68 M/mm3 (3.60-5.2); RDW 13.5 % (11.6-15.6); WHITE BLOOD COUNT 12.8 K/mm3 (4.0-10.0)
[2021-08-08 08:52] LABS: ALBUMIN 2.1 g/dl (3.4-5.0); BLOOD UREA NITROGEN 52.2 mg/dL (7-18); CALCIUM 7.5 mg/dL (8.5-10.1); MAGNESIUM 2.5 mg/dL (1.8-2.4)
[2021-08-08 08:55] LABS: PHOSPHOROUS 3.2 mg/dL (2.5-4.9)
[2021-08-08 08:56] LABS: CREATININE 0.8 mg/dL (0.55-1.3)
[2021-08-08 08:57] LABS: BILIRUBIN,TOTAL 0.7 mg/dL (0.2-1)
[2021-08-08] MEDS: PROPOFOL 1,000,000 MCG/100 ML VIAL IVPB SCH (09:52)
[2021-08-08] MEDS: SODIUM ZIRCONIUM CYCLOSILICATE (LOKELMA) 5 GM PACKET PO SCH (09:53)
[2021-08-08] MEDS: DEXAMETHASONE SOD PHOSPHATE 10 MG/1 ML VIAL IVPUSH SCH (09:53)
[2021-08-08] MEDS: AMINO ACIDS/PROTEIN HYDROLYS 30 ML LIQUID.PKT GT SCH ×2 (09:53→16:42)
[2021-08-08] MEDS: PANTOPRAZOLE SODIUM 40 MG VIAL IVPUSH SCH (09:53)
[2021-08-08] MEDS: ENOXAPARIN NA (PORCINE) 40 MG/0.4 ML DISP.SYRIN SQ SCH ×2 (09:54→22:55)
[2021-08-08] MEDS: FLUDROCORTISONE ACETATE 0.1 MG TABLET (FP) PO SCH (09:54)
[2021-08-08] MEDS ORDERED: FUROSEMIDE 40 MG/4 ML INJECTABLE VIAL IVPUSH ONE (11:00)
[2021-08-08] MEDS: BUDESONIDE/FORMETEROL FUMARATE 80/4.5 mcg INHALER IH SCH ×2 (11:55→22:56)
[2021-08-08] MEDS: FENTANYL NS IVPB 500 MCG/100 ML BAG IVPB SCH (11:56)
[2021-08-08] MEDS: INSULIN (LEVEMIR) 100 UNITS/ML UNITS SQ SCH ×2 (12:05→22:55)
[2021-08-08] MEDS: CHLORHEXIDINE GLUCONATE 4% CLEANSER FOR DECOLONIZATION TP SCH (22:54)
[2021-08-08] MEDS: NOREPINEPHRINE BITARTRATE 16,000 MCG in DEXTROSE 5%-WATER - 16,000 MCG/500 ML INFUS.BAG IVPB SCH (23:45)
[2021-08-09] MEDS ORDERED: MEROPENEM 1 GM VIAL (RESTRICTED TO ID) IVPB ONE ×2 (00:39→14:01)
[2021-08-09] MEDS ORDERED: DEXTROSE 5%-WATER 100 ML IVPB ONE ×2 (00:39→14:02)
[2021-08-09] MEDS: PROPOFOL 1,000,000 MCG/100 ML VIAL IVPB SCH (01:40)
[2021-08-09] MEDS: MEROPENEM 1 GM in DEXTROSE 5%-WATER 100 ML IVPB SCH ×2 (01:40→14:08)
[2021-08-09 07:18] LABS: ARTERIAL BLOOD GAS BASE EXCESS 9.9 mmol/L (-2-2); ARTERIAL BLOOD GAS PO2 91.5 mmHg (80-100); ARTERIAL BLOOD GAS pH 7.422 (7.350-7.450)
[2021-08-09] MEDS: INSULIN SLIDING SCALE (NOVOLOG) 1 VIAL SQ SCH ×4 (07:30→22:16)
[2021-08-09 07:45] LABS: HEMATOCRIT 35.4 % (32.4-45.2); MCH 31.6 pg (25.7-33.7); MCHC 33.7 g/dl (32.0-36.0); MEAN CELL VOLUME 93.6 fl (80-96); MEAN PLT VOLUME 11.7 fl (7.5-11.1); PLATELET COUNT 144 10^3/uL (134-434); RBC 3.78 M/mm3 (3.60-5.2); RDW 13.2 % (11.6-15.6); WHITE BLOOD COUNT 13.4 K/mm3 (4.0-10.0)
[2021-08-09 07:46] LABS: ALLENS TEST POSITIVE
[2021-08-09 07:47] LABS: VENT MODE A/C; VENT RATE 24
[2021-08-09] MEDS: FENTANYL NS IVPB 500 MCG/100 ML BAG IVPB SCH (08:00)
[2021-08-09 08:07] LABS: BLOOD UREA NITROGEN 50.5 mg/dL (7-18)
[2021-08-09 08:09] LABS: ALBUMIN 2.4 g/dl (3.4-5.0); MAGNESIUM 2.4 mg/dL (1.8-2.4)
[2021-08-09 08:12] LABS: CREATININE 0.7 mg/dL (0.55-1.3)
[2021-08-09 08:13] LABS: BILIRUBIN,TOTAL 0.6 mg/dL (0.2-1); TOT PROT 5.3 g/dl (6.4-8.2)
[2021-08-09] MEDS ORDERED: DOCUSATE SODIUM 100 MG CAPSULE (FP) PO ONE ×2 (08:25→09:15)
[2021-08-09] MEDS: AMINO ACIDS/PROTEIN HYDROLYS 30 ML LIQUID.PKT GT SCH ×2 (08:55→17:24)
[2021-08-09] MEDS ORDERED: POLYETHYLENE GLYCOL (HEALTHYLAX) 3350 17 GM PACKET PO ONE (09:15)
[2021-08-09] MEDS ORDERED: POLYETHYLENE GLYCOL 3350 119 GM BTL PO ONE (09:15)
[2021-08-09] MEDS ORDERED: METOCLOPRAMIDE HCL 10 MG TABLET (FP) PO ONE (09:30)
[2021-08-09] MEDS: FLUDROCORTISONE ACETATE 0.1 MG TABLET (FP) PO SCH (10:14)
[2021-08-09] MEDS: ACETAMINOPHEN 325 MG TABLET (FP) PO PRN (10:14)
[2021-08-09] MEDS: DEXAMETHASONE SOD PHOSPHATE 10 MG/1 ML VIAL IVPUSH SCH (10:14)
[2021-08-09] MEDS: PANTOPRAZOLE SODIUM 40 MG VIAL IVPUSH SCH (10:15)
[2021-08-09] MEDS: BUDESONIDE/FORMETEROL FUMARATE 80/4.5 mcg INHALER IH SCH ×2 (10:15→21:49)
[2021-08-09] MEDS: SODIUM ZIRCONIUM CYCLOSILICATE (LOKELMA) 5 GM PACKET PO SCH (10:16)
[2021-08-09] MEDS: ENOXAPARIN NA (PORCINE) 40 MG/0.4 ML DISP.SYRIN SQ SCH ×2 (10:16→22:14)
[2021-08-09] MEDS: INSULIN (LEVEMIR) 100 UNITS/ML UNITS SQ SCH ×2 (10:17→22:14)
[2021-08-09 11:56] LABS: ANISOCYTOSIS 2+; MACROCYTOSIS 0; PLATELET ESTIMATE DECREASED; TEAR DROP CELLS 2+
[2021-08-09] MEDS: POLYETHYLENE GLYCOL (HEALTHYLAX) 3350 17 GM PACKET PO SCH (21:48)
[2021-08-09] MEDS: CHLORHEXIDINE GLUCONATE 4% CLEANSER FOR DECOLONIZATION TP SCH (22:14)
[2021-08-10] MEDS ORDERED: MEROPENEM 1 GM VIAL (RESTRICTED TO ID) IVPB ONE ×3 (02:18→20:51)
[2021-08-10] MEDS ORDERED: DEXTROSE 5%-WATER 100 ML IVPB ONE ×3 (02:19→20:51)
[2021-08-10] MEDS: NOREPINEPHRINE BITARTRATE 16,000 MCG in DEXTROSE 5%-WATER - 16,000 MCG/500 ML INFUS.BAG IVPB SCH (02:35)
[2021-08-10] MEDS: PROPOFOL 1,000,000 MCG/100 ML VIAL IVPB SCH (02:35)
[2021-08-10] MEDS: MEROPENEM 1 GM in DEXTROSE 5%-WATER 100 ML IVPB SCH ×2 (02:36→13:57)
[2021-08-10] MEDS: INSULIN SLIDING SCALE (NOVOLOG) 1 VIAL SQ SCH ×4 (07:30→21:21)
[2021-08-10] MEDS: AMINO ACIDS/PROTEIN HYDROLYS 30 ML LIQUID.PKT GT SCH ×2 (08:55→17:36)
[2021-08-10] MEDS: DEXAMETHASONE SOD PHOSPHATE 10 MG/1 ML VIAL IVPUSH SCH (09:22)
[2021-08-10] MEDS: PANTOPRAZOLE SODIUM 40 MG VIAL IVPUSH SCH (09:22)
[2021-08-10] MEDS: ENOXAPARIN NA (PORCINE) 40 MG/0.4 ML DISP.SYRIN SQ SCH ×2 (09:22→21:20)
[2021-08-10] MEDS: FLUDROCORTISONE ACETATE 0.1 MG TABLET (FP) PO SCH (09:24)
[2021-08-10] MEDS: POLYETHYLENE GLYCOL (HEALTHYLAX) 3350 17 GM PACKET PO SCH ×3 (09:25→21:22)
[2021-08-10] MEDS: SODIUM ZIRCONIUM CYCLOSILICATE (LOKELMA) 5 GM PACKET PO SCH (09:27)
[2021-08-10] MEDS: BUDESONIDE/FORMETEROL FUMARATE 80/4.5 mcg INHALER IH SCH ×2 (09:30→21:22)
[2021-08-10] MEDS: INSULIN (LEVEMIR) 100 UNITS/ML UNITS SQ SCH ×2 (10:07→21:21)
[2021-08-10] MEDS ORDERED: FUROSEMIDE 40 MG/4 ML INJECTABLE VIAL IVPUSH ONE (12:30)
[2021-08-10] MEDS: AMINO ACIDS 4.25%/D5W 1,000 ML IV SCH (14:45)
[2021-08-10] MEDS: CHLORHEXIDINE GLUCONATE 4% CLEANSER FOR DECOLONIZATION TP SCH (21:21)
[2021-08-11] MEDS: MEROPENEM 1 GM in DEXTROSE 5%-WATER 100 ML IVPB SCH ×2 (01:22→13:17)
[2021-08-11] MEDS: INSULIN SLIDING SCALE (NOVOLOG) 1 VIAL SQ SCH ×4 (06:18→21:24)
[2021-08-11] MEDS: INSULIN (LEVEMIR) 100 UNITS/ML UNITS SQ SCH ×2 (06:18→21:23)
[2021-08-11 07:01] LABS: BASO % 0.3 % (0-2.0); EOS % 0.4 % (0-4.5); HEMATOCRIT 36.4 % (32.4-45.2); HEMOGLOBIN 12.4 GM/dL (10.7-15.3); LYMPH % 5.5 % (8-40); MCHC 33.9 g/dl (32.0-36.0); MEAN CELL VOLUME 94.2 fl (80-96); MONO % 6.5 % (3.8-10.2); NEUT % 87.3 % (42.8-82.8); PLATELET COUNT 125 10^3/uL (134-434); RBC 3.87 M/mm3 (3.60-5.2); RDW 13.5 % (11.6-15.6); WHITE BLOOD COUNT 12.4 K/mm3 (4.0-10.0)
[2021-08-11 07:21] LABS: CHLORIDE 101 mmol/L (98-107); SODIUM 142 mmol/L (136-145)
[2021-08-11 07:24] LABS: ANION GAP 8 MMOL/L (8-16); BLOOD UREA NITROGEN 49.6 mg/dL (7-18); CALCIUM 8.2 mg/dL (8.5-10.1); CO2 33 mmol/L (21-32); GLUCOSE,RANDOM 169 mg/dL (74-106)
[2021-08-11 07:25] LABS: ALBUMIN 2.6 g/dl (3.4-5.0)
[2021-08-11 07:26] LABS: MAGNESIUM 2.4 mg/dL (1.8-2.4)
[2021-08-11 07:27] LABS: PHOSPHOROUS 2.9 mg/dL (2.5-4.9); SGOT/AST 40 U/L (15-37); SGPT/ALT 80 U/L (13-61)
[2021-08-11 07:28] LABS: CREATININE 0.6 mg/dL (0.55-1.3)
[2021-08-11 07:29] LABS: TOT PROT 5.6 g/dl (6.4-8.2)
[2021-08-11 07:31] LABS: TRIGLYCERIDES 371 mg/dL (0-150)
[2021-08-11 07:33] LABS: ALK PHOS 139 U/L (45-117)
[2021-08-11] MEDS: AMINO ACIDS/PROTEIN HYDROLYS 30 ML LIQUID.PKT GT SCH ×2 (09:42→17:08)
[2021-08-11] MEDS: POLYETHYLENE GLYCOL (HEALTHYLAX) 3350 17 GM PACKET PO SCH ×2 (09:43→21:23)
[2021-08-11] MEDS: SODIUM ZIRCONIUM CYCLOSILICATE (LOKELMA) 5 GM PACKET PO SCH (09:43)
[2021-08-11] MEDS: ENOXAPARIN NA (PORCINE) 40 MG/0.4 ML DISP.SYRIN SQ SCH ×2 (09:45→21:25)
[2021-08-11] MEDS: PANTOPRAZOLE SODIUM 40 MG VIAL IVPUSH SCH (09:52)
[2021-08-11] MEDS: BUDESONIDE/FORMETEROL FUMARATE 80/4.5 mcg INHALER IH SCH ×2 (09:53→21:24)
[2021-08-11] MEDS: DEXAMETHASONE SOD PHOSPHATE 10 MG/1 ML VIAL IVPUSH SCH (10:01)
[2021-08-11] MEDS ORDERED: DEXTROSE 5%-WATER 100 ML IVPB ONE (13:15)
[2021-08-11] MEDS ORDERED: MEROPENEM 1 GM VIAL (RESTRICTED TO ID) IVPB ONE (13:15)
[2021-08-11] MEDS ORDERED: PT OWN MED DRAWER 7, Y5N ONE (16:50)
[2021-08-11] MEDS: AMINO ACIDS 4.25%/D5W 1,000 ML IV SCH (16:54)
[2021-08-11] MEDS: CHLORHEXIDINE GLUCONATE 4% CLEANSER FOR DECOLONIZATION TP SCH (21:23)
[2021-08-12] MEDS ORDERED: DEXTROSE 5%-WATER 100 ML IVPB ONE ×3 (02:14→23:59)
[2021-08-12] MEDS ORDERED: MEROPENEM 1 GM VIAL (RESTRICTED TO ID) IVPB ONE ×3 (02:14→23:59)
[2021-08-12] MEDS: MEROPENEM 1 GM in DEXTROSE 5%-WATER 100 ML IVPB SCH ×2 (02:42→14:48)
[2021-08-12] MEDS: INSULIN SLIDING SCALE (NOVOLOG) 1 VIAL SQ SCH ×4 (06:25→21:33)
[2021-08-12] MEDS: INSULIN (LEVEMIR) 100 UNITS/ML UNITS SQ SCH ×2 (06:25→21:33)
[2021-08-12 07:15] LABS: BASO % 0.6 % (0-2.0); EOS % 0.4 % (0-4.5); HEMATOCRIT 34.2 % (32.4-45.2); HEMOGLOBIN 11.5 GM/dL (10.7-15.3); LYMPH % 5.9 % (8-40); MCH 31.8 pg (25.7-33.7); MCHC 33.8 g/dl (32.0-36.0); MEAN CELL VOLUME 94.3 fl (80-96); MEAN PLT VOLUME 11.7 fl (7.5-11.1); MONO % 6.4 % (3.8-10.2); NEUT % 86.7 % (42.8-82.8); PLATELET COUNT 109 10^3/uL (134-434); RBC 3.63 M/mm3 (3.60-5.2); RDW 13.7 % (11.6-15.6); WHITE BLOOD COUNT 13.1 K/mm3 (4.0-10.0)
[2021-08-12 08:19] LABS: CALCIUM 8.2 mg/dL (8.5-10.1)
[2021-08-12 08:20] LABS: ALBUMIN 2.4 g/dl (3.4-5.0); BLOOD UREA NITROGEN 47.4 mg/dL (7-18); MAGNESIUM 2.5 mg/dL (1.8-2.4)
[2021-08-12 08:23] LABS: CREATININE 0.6 mg/dL (0.55-1.3); PHOSPHOROUS 2.7 mg/dL (2.5-4.9)
[2021-08-12 08:24] LABS: BILIRUBIN,TOTAL 1.2 mg/dL (0.2-1); TOT PROT 5.2 g/dl (6.4-8.2)
[2021-08-12] MEDS: AMINO ACIDS/PROTEIN HYDROLYS 30 ML LIQUID.PKT GT SCH ×2 (09:30→17:06)
[2021-08-12] MEDS: DEXAMETHASONE SOD PHOSPHATE 10 MG/1 ML VIAL IVPUSH SCH (10:32)
[2021-08-12] MEDS: POLYETHYLENE GLYCOL (HEALTHYLAX) 3350 17 GM PACKET PO SCH ×2 (10:33→21:33)
[2021-08-12] MEDS: BUDESONIDE/FORMETEROL FUMARATE 80/4.5 mcg INHALER IH SCH ×2 (10:33→21:34)
[2021-08-12] MEDS: PANTOPRAZOLE SODIUM 40 MG VIAL IVPUSH SCH (10:33)
[2021-08-12] MEDS: ENOXAPARIN NA (PORCINE) 40 MG/0.4 ML DISP.SYRIN SQ SCH ×2 (10:33→21:33)
[2021-08-12] MEDS: AMINO ACIDS 4.25%/D5W 1,000 ML IV SCH (14:48)
[2021-08-12 18:37] VITALS: BMI 28.6
[2021-08-12] MEDS: CHLORHEXIDINE GLUCONATE 4% CLEANSER FOR DECOLONIZATION TP SCH (21:33)
[2021-08-13] MEDS: MEROPENEM 1 GM in DEXTROSE 5%-WATER 100 ML IVPB SCH ×2 (02:52→14:00)
[2021-08-13] MEDS: INSULIN (LEVEMIR) 100 UNITS/ML UNITS SQ SCH ×2 (06:23→23:29)
[2021-08-13] MEDS: INSULIN SLIDING SCALE (NOVOLOG) 1 VIAL SQ SCH ×4 (06:24→22:29)
[2021-08-13 07:13] LABS: BASO % 0.3 % (0-2.0); EOS % 0.4 % (0-4.5); HEMATOCRIT 33.4 % (32.4-45.2); HEMOGLOBIN 11.1 GM/dL (10.7-15.3); LYMPH % 5.2 % (8-40); MCH 31.4 pg (25.7-33.7); MCHC 33.3 g/dl (32.0-36.0); MEAN CELL VOLUME 94.5 fl (80-96); MEAN PLT VOLUME 11.6 fl (7.5-11.1); MONO % 6.9 % (3.8-10.2); NEUT % 87.2 % (42.8-82.8); PLATELET COUNT 98 10^3/uL (134-434); RBC 3.53 M/mm3 (3.60-5.2); RDW 13.6 % (11.6-15.6); WHITE BLOOD COUNT 11.9 K/mm3 (4.0-10.0)
[2021-08-13 07:22] LABS: CALCIUM 8.1 mg/dL (8.5-10.1)
[2021-08-13 07:23] LABS: ALBUMIN 2.4 g/dl (3.4-5.0); BLOOD UREA NITROGEN 41.8 mg/dL (7-18); MAGNESIUM 2.4 mg/dL (1.8-2.4); PHOSPHOROUS 2.7 mg/dL (2.5-4.9)
[2021-08-13 07:24] LABS: BILIRUBIN,TOTAL 1.1 mg/dL (0.2-1); TOT PROT 5.3 g/dl (6.4-8.2)
[2021-08-13 07:25] LABS: CREATININE 0.5 mg/dL (0.55-1.3)
[2021-08-13] MEDS: AMINO ACIDS/PROTEIN HYDROLYS 30 ML LIQUID.PKT GT SCH ×2 (08:00→17:56)
[2021-08-13] MEDS: BUDESONIDE/FORMETEROL FUMARATE 80/4.5 mcg INHALER IH SCH ×2 (10:48→21:46)
[2021-08-13] MEDS: PANTOPRAZOLE SODIUM 40 MG VIAL IVPUSH SCH (10:48)
[2021-08-13] MEDS: ENOXAPARIN NA (PORCINE) 40 MG/0.4 ML DISP.SYRIN SQ SCH ×2 (10:48→21:46)
[2021-08-13] MEDS: POLYETHYLENE GLYCOL (HEALTHYLAX) 3350 17 GM PACKET PO SCH ×2 (10:48→21:46)
[2021-08-13] MEDS: DEXAMETHASONE SOD PHOSPHATE 4 MG/1 ML VIAL IVPUSH SCH (10:48)
[2021-08-13] MEDS ORDERED: PT OWN MED DRAWER 7, Y5N ONE (12:30)
[2021-08-13] MEDS ORDERED: DEXTROSE 5%-WATER 100 ML IVPB ONE (15:44)
[2021-08-13] MEDS ORDERED: MEROPENEM 1 GM VIAL (RESTRICTED TO ID) IVPB ONE (15:44)
[2021-08-13] MEDS: AMINO ACIDS 4.25%/D5W 1,000 ML IV SCH (16:01)
[2021-08-13] MEDS: CHLORHEXIDINE GLUCONATE 4% CLEANSER FOR DECOLONIZATION TP SCH (21:46)
[2021-08-14] MEDS ORDERED: MEROPENEM 1 GM VIAL (RESTRICTED TO ID) IVPB ONE ×2 (00:36→12:47)
[2021-08-14] MEDS ORDERED: DEXTROSE 5%-WATER 100 ML IVPB ONE ×2 (00:36→12:47)
[2021-08-14] MEDS: MEROPENEM 1 GM in DEXTROSE 5%-WATER 100 ML IVPB SCH ×2 (01:36→15:17)
[2021-08-14] MEDS: INSULIN SLIDING SCALE (NOVOLOG) 1 VIAL SQ SCH ×4 (06:46→21:08)
[2021-08-14 06:52] LABS: HEMATOCRIT 31.1 % (32.4-45.2); HEMOGLOBIN 10.5 GM/dL (10.7-15.3); MCH 31.4 pg (25.7-33.7); MCHC 33.9 g/dl (32.0-36.0); MEAN CELL VOLUME 92.5 fl (80-96); MEAN PLT VOLUME 11.1 fl (7.5-11.1); PLATELET COUNT 88 10^3/uL (134-434); RBC 3.36 M/mm3 (3.60-5.2); RDW 13.3 % (11.6-15.6); WHITE BLOOD COUNT 11.5 K/mm3 (4.0-10.0)
[2021-08-14 07:21] LABS: CALCIUM 8.1 mg/dL (8.5-10.1)
[2021-08-14] MEDS: INSULIN (LEVEMIR) 100 UNITS/ML UNITS SQ SCH ×2 (07:21→21:07)
[2021-08-14 07:22] LABS: ALBUMIN 2.3 g/dl (3.4-5.0); BLOOD UREA NITROGEN 37.9 mg/dL (7-18)
[2021-08-14 07:25] LABS: CREATININE 0.5 mg/dL (0.55-1.3)
[2021-08-14] MEDS: ENOXAPARIN NA (PORCINE) 40 MG/0.4 ML DISP.SYRIN SQ SCH ×2 (10:50→21:25)
[2021-08-14] MEDS: PANTOPRAZOLE SODIUM 40 MG VIAL IVPUSH SCH (10:50)
[2021-08-14] MEDS: POLYETHYLENE GLYCOL (HEALTHYLAX) 3350 17 GM PACKET PO SCH ×2 (10:50→21:07)
[2021-08-14] MEDS: BUDESONIDE/FORMETEROL FUMARATE 80/4.5 mcg INHALER IH SCH ×2 (10:50→21:08)
[2021-08-14] MEDS: DEXAMETHASONE SOD PHOSPHATE 4 MG/1 ML VIAL IVPUSH SCH (10:50)
[2021-08-14] MEDS: ACETAMINOPHEN 325 MG TABLET (FP) PO PRN (11:11)
[2021-08-14] MEDS: AMINO ACIDS/PROTEIN HYDROLYS 30 ML LIQUID.PKT GT SCH ×2 (11:11→18:17)
[2021-08-14] MEDS: AMINO ACIDS 4.25%/D5W 1,000 ML IV SCH ×2 (15:17→18:20)
[2021-08-14] MEDS ORDERED: PT OWN MED DRAWER 7, Y5N ONE (18:14)
[2021-08-14] MEDS: DOXYCYCLINE HYCLATE 100 MG CAPSULE PO SCH (18:20)
[2021-08-14] MEDS: CHLORHEXIDINE GLUCONATE 4% CLEANSER FOR DECOLONIZATION TP SCH (21:07)
[2021-08-15] MEDS: INSULIN (LEVEMIR) 100 UNITS/ML UNITS SQ SCH ×2 (06:16→22:01)
[2021-08-15] MEDS: INSULIN SLIDING SCALE (NOVOLOG) 1 VIAL SQ SCH ×4 (06:17→22:02)
[2021-08-15 07:16] LABS: ALBUMIN 2.2 g/dl (3.4-5.0); CALCIUM 8.5 mg/dL (8.5-10.1); MAGNESIUM 2.2 mg/dL (1.8-2.4)
[2021-08-15 07:17] LABS: BLOOD UREA NITROGEN 31.8 mg/dL (7-18)
[2021-08-15 07:20] LABS: CREATININE 0.5 mg/dL (0.55-1.3)
[2021-08-15 07:21] LABS: BILIRUBIN,TOTAL 0.9 mg/dL (0.2-1); TOT PROT 5.1 g/dl (6.4-8.2)
[2021-08-15 09:35] LABS: BASO % 0.5 % (0-2.0); EOS % 0.5 % (0-4.5); HEMATOCRIT 31.9 % (32.4-45.2); HEMOGLOBIN 10.5 GM/dL (10.7-15.3); MCHC 32.7 g/dl (32.0-36.0); MEAN CELL VOLUME 94.8 fl (80-96); MEAN PLT VOLUME 12.3 fl (7.5-11.1); MONO % 4.1 % (3.8-10.2); NEUT % 90.9 % (42.8-82.8); PLATELET COUNT 92 10^3/uL (134-434); RBC 3.37 M/mm3 (3.60-5.2); RDW 14.1 % (11.6-15.6); WHITE BLOOD COUNT 13.3 K/mm3 (4.0-10.0)
[2021-08-15] MEDS: DEXAMETHASONE SOD PHOSPHATE 4 MG/1 ML VIAL IVPUSH SCH (10:15)
[2021-08-15] MEDS: ACETAMINOPHEN 325 MG TABLET (FP) PO PRN (10:15)
[2021-08-15] MEDS: PANTOPRAZOLE SODIUM 40 MG VIAL IVPUSH SCH (10:15)
[2021-08-15] MEDS: DOXYCYCLINE HYCLATE 100 MG CAPSULE PO SCH ×2 (10:16→17:46)
[2021-08-15] MEDS: AMINO ACIDS/PROTEIN HYDROLYS 30 ML LIQUID.PKT GT SCH ×2 (10:16→17:44)
[2021-08-15] MEDS: POLYETHYLENE GLYCOL (HEALTHYLAX) 3350 17 GM PACKET PO SCH ×2 (10:16→21:54)
[2021-08-15] MEDS: ENOXAPARIN NA (PORCINE) 40 MG/0.4 ML DISP.SYRIN SQ SCH (10:17)
[2021-08-15] MEDS: BUDESONIDE/FORMETEROL FUMARATE 80/4.5 mcg INHALER IH SCH ×2 (10:17→22:02)
[2021-08-15] MEDS ORDERED: AMIODARONE IN DEXTROSE,ISO-OSM 360 MG/200 ML BAG ONE (17:30)
[2021-08-15] MEDS: AMINO ACIDS 4.25%/D5W 1,000 ML IV SCH (17:44)
[2021-08-15] MEDS: CHLORHEXIDINE GLUCONATE 4% CLEANSER FOR DECOLONIZATION TP SCH (21:53)
[2021-08-16] MEDS: INSULIN SLIDING SCALE (NOVOLOG) 1 VIAL SQ SCH ×4 (06:31→21:41)
[2021-08-16] MEDS: INSULIN (LEVEMIR) 100 UNITS/ML UNITS SQ SCH ×2 (06:32→21:42)
[2021-08-16] MEDS: AMINO ACIDS/PROTEIN HYDROLYS 30 ML LIQUID.PKT GT SCH ×2 (10:55→18:26)
[2021-08-16] MEDS: DEXAMETHASONE SOD PHOSPHATE 4 MG/1 ML VIAL IVPUSH SCH (10:55)
[2021-08-16] MEDS: POLYETHYLENE GLYCOL (HEALTHYLAX) 3350 17 GM PACKET PO SCH ×2 (10:55→21:41)
[2021-08-16] MEDS: PANTOPRAZOLE SODIUM 40 MG VIAL IVPUSH SCH (10:55)
[2021-08-16] MEDS: BUDESONIDE/FORMETEROL FUMARATE 80/4.5 mcg INHALER IH SCH ×2 (10:55→21:41)
[2021-08-16] MEDS: DOXYCYCLINE HYCLATE 100 MG CAPSULE PO SCH ×2 (10:59→18:26)
[2021-08-16] MEDS: CHLORHEXIDINE GLUCONATE 4% CLEANSER FOR DECOLONIZATION TP SCH (21:41)
[2021-08-16] MEDS: AMINO ACIDS 4.25%/D5W 1,000 ML IV SCH (22:33)
[2021-08-17] MEDS: INSULIN (LEVEMIR) 100 UNITS/ML UNITS SQ SCH ×2 (06:50→22:31)
[2021-08-17] MEDS: INSULIN SLIDING SCALE (NOVOLOG) 1 VIAL SQ SCH ×4 (06:50→22:32)
[2021-08-17 07:44] LABS: BASO % 0.2 % (0-2.0); EOS % 2.7 % (0-4.5); HEMATOCRIT 27.4 % (32.4-45.2); HEMOGLOBIN 9.4 GM/dL (10.7-15.3); LYMPH % 7.1 % (8-40); MCH 32.2 pg (25.7-33.7); MCHC 34.4 g/dl (32.0-36.0); MEAN CELL VOLUME 93.8 fl (80-96); MONO % 8.3 % (3.8-10.2); NEUT % 81.7 % (42.8-82.8); PLATELET COUNT 90 10^3/uL (134-434); RBC 2.92 M/mm3 (3.60-5.2); WHITE BLOOD COUNT 7.8 K/mm3 (4.0-10.0)
[2021-08-17 08:12] LABS: CALCIUM 8.5 mg/dL (8.5-10.1)
[2021-08-17 08:13] LABS: BLOOD UREA NITROGEN 29.1 mg/dL (7-18)
[2021-08-17 08:16] LABS: CREATININE 0.5 mg/dL (0.55-1.3)
[2021-08-17 08:17] LABS: BILIRUBIN,TOTAL 0.7 mg/dL (0.2-1)
[2021-08-17] MEDS: POLYETHYLENE GLYCOL (HEALTHYLAX) 3350 17 GM PACKET PO SCH ×2 (09:46→21:53)
[2021-08-17] MEDS: AMINO ACIDS/PROTEIN HYDROLYS 30 ML LIQUID.PKT GT SCH ×2 (09:46→17:33)
[2021-08-17] MEDS: DEXAMETHASONE SOD PHOSPHATE 4 MG/1 ML VIAL IVPUSH SCH (09:47)
[2021-08-17] MEDS: PANTOPRAZOLE SODIUM 40 MG VIAL IVPUSH SCH (09:47)
[2021-08-17] MEDS: BUDESONIDE/FORMETEROL FUMARATE 80/4.5 mcg INHALER IH SCH ×2 (09:49→21:53)
[2021-08-17] MEDS: DOXYCYCLINE HYCLATE 100 MG CAPSULE PO SCH ×2 (09:49→17:34)
[2021-08-17] MEDS: AMINO ACIDS 4.25%/D5W 1,000 ML IV SCH (16:54)
[2021-08-17] MEDS: CHLORHEXIDINE GLUCONATE 4% CLEANSER FOR DECOLONIZATION TP SCH (21:53)
[2021-08-18] MEDS: INSULIN SLIDING SCALE (NOVOLOG) 1 VIAL SQ SCH ×4 (06:54→22:38)
[2021-08-18] MEDS: INSULIN (LEVEMIR) 100 UNITS/ML UNITS SQ SCH ×2 (07:52→22:38)
[2021-08-18 07:56] LABS: BASO % 0.2 % (0-2.0); EOS % 3.2 % (0-4.5); HEMATOCRIT 28.1 % (32.4-45.2); HEMOGLOBIN 9.6 GM/dL (10.7-15.3); LYMPH % 7.9 % (8-40); MCH 31.9 pg (25.7-33.7); MCHC 34.1 g/dl (32.0-36.0); MEAN CELL VOLUME 93.4 fl (80-96); MEAN PLT VOLUME 10.8 fl (7.5-11.1); MONO % 10.4 % (3.8-10.2); NEUT % 78.3 % (42.8-82.8); PLATELET COUNT 112 10^3/uL (134-434); RBC 3.01 M/mm3 (3.60-5.2); RDW 14.1 % (11.6-15.6); WHITE BLOOD COUNT 8.1 K/mm3 (4.0-10.0)
[2021-08-18 08:27] LABS: CREATININE 0.4 mg/dL (0.55-1.3)
[2021-08-18 08:29] LABS: BILIRUBIN,TOTAL 0.6 mg/dL (0.2-1); TOT PROT 5.4 g/dl (6.4-8.2)
[2021-08-18 08:31] LABS: CALCIUM 8.5 mg/dL (8.5-10.1)
[2021-08-18 08:32] LABS: MAGNESIUM 1.7 mg/dL (1.8-2.4)
[2021-08-18] MEDS: AMINO ACIDS/PROTEIN HYDROLYS 30 ML LIQUID.PKT GT SCH ×2 (08:50→18:21)
[2021-08-18] MEDS: POLYETHYLENE GLYCOL (HEALTHYLAX) 3350 17 GM PACKET PO SCH ×2 (10:06→22:38)
[2021-08-18] MEDS: BUDESONIDE/FORMETEROL FUMARATE 80/4.5 mcg INHALER IH SCH ×2 (10:06→22:39)
[2021-08-18] MEDS: DOXYCYCLINE HYCLATE 100 MG CAPSULE PO SCH ×2 (10:06→18:21)
[2021-08-18] MEDS: PANTOPRAZOLE SODIUM 40 MG VIAL IVPUSH SCH (10:06)
[2021-08-18] MEDS: AMINO ACIDS 4.25%/D5W 1,000 ML IV SCH (13:55)
[2021-08-18] MEDS: ACETAMINOPHEN 325 MG TABLET (FP) PO PRN (20:44)
[2021-08-18] MEDS: CHLORHEXIDINE GLUCONATE 4% CLEANSER FOR DECOLONIZATION TP SCH (22:38)
[2021-08-19] MEDS ORDERED: ALBUTEROL SO4 HFA INHALER IH PRN (00:54)
[2021-08-19] MEDS: INSULIN (LEVEMIR) 100 UNITS/ML UNITS SQ SCH ×2 (07:46→21:42)
[2021-08-19] MEDS: INSULIN SLIDING SCALE (NOVOLOG) 1 VIAL SQ SCH ×3 (07:47→18:13)
[2021-08-19 08:09] LABS: HEMATOCRIT 29.1 % (32.4-45.2); HEMOGLOBIN 10.1 GM/dL (10.7-15.3); MCH 32.3 pg (25.7-33.7); MCHC 34.5 g/dl (32.0-36.0); MEAN CELL VOLUME 93.6 fl (80-96); MEAN PLT VOLUME 10.7 fl (7.5-11.1); PLATELET COUNT 141 10^3/uL (134-434); RBC 3.11 M/mm3 (3.60-5.2); RDW 14.1 % (11.6-15.6)
[2021-08-19] MEDS: AMINO ACIDS/PROTEIN HYDROLYS 30 ML LIQUID.PKT GT SCH ×2 (08:13→18:07)
[2021-08-19 08:25] LABS: CALCIUM 8.7 mg/dL (8.5-10.1); MAGNESIUM 1.6 mg/dL (1.8-2.4)
[2021-08-19 08:28] LABS: CREATININE 0.6 mg/dL (0.55-1.3); PHOSPHOROUS 3.6 mg/dL (2.5-4.9)
[2021-08-19 09:24] LABS: ANISOCYTOSIS 0; MACROCYTOSIS 0; PLATELET ESTIMATE DECREASED
[2021-08-19] MEDS: PANTOPRAZOLE SODIUM 40 MG VIAL IVPUSH SCH (09:32)
[2021-08-19] MEDS: POLYETHYLENE GLYCOL (HEALTHYLAX) 3350 17 GM PACKET PO SCH ×2 (09:32→21:21)
[2021-08-19] MEDS: DOXYCYCLINE HYCLATE 100 MG CAPSULE PO SCH (09:32)
[2021-08-19 11:37] LABS: EPI CELLS 3 /uL (0-25.1); HYALINE CASTS 4 /uL (0-3.1); PH,URINE 6.5 (5.0-8.0); URINE APPEARANCE CLEAR; URINE BACTERIA 902 /uL (0-1359); URINE BILIRUBIN NEGATIVE (NEGATIVE); URINE COLOR YELLOW; URINE GLUCOSE (UA) NEGATIVE (NEGATIVE); URINE KETONE NEGATIVE (NEGATIVE); URINE LEUK ESTERASE 2+ (NEGATIVE); URINE NITRITE NEGATIVE (NEGATIVE); URINE PROTEIN 1+ (NEGATIVE); URINE RBC 393 /uL (0-23.9); URINE WBC 279 /uL (0-25.8)
[2021-08-19] MEDS: BUDESONIDE/FORMETEROL FUMARATE 80/4.5 mcg INHALER IH SCH ×2 (11:57→21:22)
[2021-08-19] MEDS ORDERED: MAGNESIUM OXIDE 400 MG TABLET (FP) PO ONE (12:00)
[2021-08-19 14:08] LABS: YEAST NON SEEN (NEGATIVE)
[2021-08-19] MEDS: AMINO ACIDS 4.25%/D5W 1,000 ML IV SCH (15:03)
[2021-08-19] MEDS ORDERED: MEROPENEM 1 GM VIAL (RESTRICTED TO ID) IVPB ONE (18:00)
[2021-08-19] MEDS ORDERED: DEXTROSE 5%-WATER 100 ML IVPB ONE (18:01)
[2021-08-19] MEDS: MEROPENEM 1 GM in DEXTROSE 5%-WATER 100 ML IVPB SCH (18:04)
[2021-08-19] MEDS: VANCOMYCIN 1 GRAM (PRE-DOCKED) 1,000 MG/250 ML BAG IVPB SCH (18:07)
[2021-08-20] MEDS: MEROPENEM 1 GM in DEXTROSE 5%-WATER 100 ML IVPB SCH ×3 (02:00→18:25)
[2021-08-20] MEDS ORDERED: MEROPENEM 1 GM VIAL (RESTRICTED TO ID) IVPB ONE ×4 (02:20→22:23)
[2021-08-20] MEDS ORDERED: DEXTROSE 5%-WATER 100 ML IVPB ONE ×4 (02:20→22:23)
[2021-08-20] MEDS: VANCOMYCIN 1 GRAM (PRE-DOCKED) 1,000 MG/250 ML BAG IVPB SCH ×2 (06:13→18:29)
[2021-08-20] MEDS: INSULIN (LEVEMIR) 100 UNITS/ML UNITS SQ SCH ×2 (06:31→23:21)
[2021-08-20] MEDS: INSULIN SLIDING SCALE (NOVOLOG) 1 VIAL SQ SCH ×4 (06:33→23:29)
[2021-08-20] MEDS: ACETAMINOPHEN 325 MG TABLET (FP) PO PRN ×2 (10:18→23:16)
[2021-08-20] MEDS: POLYETHYLENE GLYCOL (HEALTHYLAX) 3350 17 GM PACKET PO SCH ×2 (10:18→23:21)
[2021-08-20] MEDS: AMINO ACIDS/PROTEIN HYDROLYS 30 ML LIQUID.PKT GT SCH ×2 (10:20→18:25)
[2021-08-20] MEDS: PANTOPRAZOLE SODIUM 40 MG VIAL IVPUSH SCH (10:20)
[2021-08-20] MEDS: BUDESONIDE/FORMETEROL FUMARATE 80/4.5 mcg INHALER IH SCH ×2 (10:21→23:18)
[2021-08-20] MEDS: AMINO ACIDS 4.25%/D5W 1,000 ML IV SCH (18:25)
[2021-08-21] MEDS: MEROPENEM 1 GM in DEXTROSE 5%-WATER 100 ML IVPB SCH ×3 (01:20→18:03)
[2021-08-21] MEDS: AMINO ACIDS 4.25%/D5W 1,000 ML IV SCH ×2 (05:46→18:08)
[2021-08-21] MEDS: VANCOMYCIN 1 GRAM (PRE-DOCKED) 1,000 MG/250 ML BAG IVPB SCH ×2 (06:11→18:05)
[2021-08-21] MEDS: INSULIN (LEVEMIR) 100 UNITS/ML UNITS SQ SCH (06:52)
[2021-08-21] MEDS: INSULIN SLIDING SCALE (NOVOLOG) 1 VIAL SQ SCH ×3 (06:53→18:07)
[2021-08-21 07:13] LABS: HEMATOCRIT 26.7 % (32.4-45.2); HEMOGLOBIN 8.8 GM/dL (10.7-15.3); MCH 30.8 pg (25.7-33.7); MCHC 32.8 g/dl (32.0-36.0); MEAN CELL VOLUME 93.8 fl (80-96); MEAN PLT VOLUME 10.1 fl (7.5-11.1); PLATELET COUNT 211 10^3/uL (134-434); RBC 2.84 M/mm3 (3.60-5.2); RDW 14.5 % (11.6-15.6); WHITE BLOOD COUNT 11.1 K/mm3 (4.0-10.0)
[2021-08-21 07:41] LABS: CHLORIDE 99 mmol/L (98-107); SODIUM 134 mmol/L (136-145)
[2021-08-21 07:47] LABS: CALCIUM 8.5 mg/dL (8.5-10.1)
[2021-08-21 07:48] LABS: ANION GAP 10 MMOL/L (8-16); CO2 25 mmol/L (21-32); GLUCOSE,RANDOM 129 mg/dL (74-106)
[2021-08-21 07:49] LABS: CREATININE 0.6 mg/dL (0.55-1.3); SGOT/AST 50 U/L (15-37)
[2021-08-21 07:51] LABS: BILIRUBIN,TOTAL 1.1 mg/dL (0.2-1); SGPT/ALT 102 U/L (13-61); TOT PROT 5.3 g/dl (6.4-8.2)
[2021-08-21 07:52] LABS: ALK PHOS 163 U/L (45-117)
[2021-08-21 07:54] LABS: ALBUMIN 1.5 g/dl (3.4-5.0)
[2021-08-21] MEDS ORDERED: MEROPENEM 1 GM VIAL (RESTRICTED TO ID) IVPB ONE ×2 (09:30→17:16)
[2021-08-21] MEDS ORDERED: DEXTROSE 5%-WATER 100 ML IVPB ONE ×2 (09:31→17:17)
[2021-08-21 09:55] LABS: ANISOCYTOSIS 0; MACROCYTOSIS 0; PLATELET ESTIMATE NORMAL
[2021-08-21] MEDS: BUDESONIDE/FORMETEROL FUMARATE 80/4.5 mcg INHALER IH SCH ×2 (10:41→22:00)
[2021-08-21] MEDS: POLYETHYLENE GLYCOL (HEALTHYLAX) 3350 17 GM PACKET PO SCH ×2 (10:41→22:01)
[2021-08-21] MEDS: AMINO ACIDS/PROTEIN HYDROLYS 30 ML LIQUID.PKT GT SCH ×2 (10:42→18:03)
[2021-08-21] MEDS: PANTOPRAZOLE SODIUM 40 MG VIAL IVPUSH SCH (10:43)
[2021-08-21] MEDS: ACETAMINOPHEN 325 MG TABLET (FP) PO PRN (10:56)
[2021-08-22] MEDS: INSULIN (LEVEMIR) 100 UNITS/ML UNITS SQ SCH ×3 (00:20→21:41)
[2021-08-22] MEDS: INSULIN SLIDING SCALE (NOVOLOG) 1 VIAL SQ SCH ×5 (00:22→21:54)
[2021-08-22] MEDS: ACETAMINOPHEN 325 MG TABLET (FP) PO PRN ×3 (00:24→20:17)
[2021-08-22] MEDS ORDERED: MEROPENEM 1 GM VIAL (RESTRICTED TO ID) IVPB ONE ×4 (02:27→17:41)
[2021-08-22] MEDS ORDERED: DEXTROSE 5%-WATER 0 ML IVPB ONE (02:27)
[2021-08-22] MEDS: MEROPENEM 1 GM in DEXTROSE 5%-WATER 100 ML IVPB SCH ×3 (02:32→17:40)
[2021-08-22] MEDS: VANCOMYCIN 1 GRAM (PRE-DOCKED) 1,000 MG/250 ML BAG IVPB SCH ×2 (05:47→18:28)
[2021-08-22] MEDS: AMINO ACIDS 4.25%/D5W 1,000 ML IV SCH ×2 (05:54→16:03)
[2021-08-22 07:36] LABS: HEMATOCRIT 26.1 % (32.4-45.2); HEMOGLOBIN 8.8 GM/dL (10.7-15.3); MCH 31.5 pg (25.7-33.7); MCHC 33.7 g/dl (32.0-36.0); MEAN CELL VOLUME 93.5 fl (80-96); MEAN PLT VOLUME 9.3 fl (7.5-11.1); PLATELET COUNT 249 10^3/uL (134-434); RBC 2.79 M/mm3 (3.60-5.2); RDW 14.4 % (11.6-15.6); WHITE BLOOD COUNT 12.4 K/mm3 (4.0-10.0)
[2021-08-22 07:58] LABS: CALCIUM 8.6 mg/dL (8.5-10.1)
[2021-08-22 07:59] LABS: ALBUMIN 1.4 g/dl (3.4-5.0); BLOOD UREA NITROGEN 29.8 mg/dL (7-18)
[2021-08-22 08:02] LABS: CREATININE 0.5 mg/dL (0.55-1.3)
[2021-08-22 08:04] LABS: BILIRUBIN,TOTAL 0.8 mg/dL (0.2-1); TOT PROT 5.3 g/dl (6.4-8.2)
[2021-08-22 09:36] LABS: ANISOCYTOSIS 0; HELMET CELLS 0; HOWELL-JOLLY BODIES 0; MACROCYTOSIS 0; OVALOCYTE 0; PLATELET ESTIMATE NORMAL; ROULEAU 0; SICKELED CELLS 0; TARGET CELLS 0; TEAR DROP CELLS 0; TOXIC GRANULATION 0
[2021-08-22] MEDS ORDERED: DEXTROSE 5%-WATER 100 ML IVPB ONE ×3 (09:41→17:41)
[2021-08-22] MEDS: BUDESONIDE/FORMETEROL FUMARATE 80/4.5 mcg INHALER IH SCH ×2 (10:06→21:42)
[2021-08-22] MEDS: ENOXAPARIN NA (PORCINE) 40 MG/0.4 ML DISP.SYRIN SQ SCH (10:06)
[2021-08-22] MEDS: AMINO ACIDS/PROTEIN HYDROLYS 30 ML LIQUID.PKT GT SCH ×2 (10:06→17:44)
[2021-08-22] MEDS: PANTOPRAZOLE SODIUM 40 MG VIAL IVPUSH SCH (10:06)
[2021-08-22] MEDS: POLYETHYLENE GLYCOL (HEALTHYLAX) 3350 17 GM PACKET PO SCH ×2 (10:06→21:40)
[2021-08-22] MEDS ORDERED: FUROSEMIDE 40 MG/4 ML INJECTABLE VIAL IVPUSH ONE (10:15)
[2021-08-22] MEDS ORDERED: SODIUM CHLORIDE 1,000 ML IV SCH (10:30)
[2021-08-22] MEDS: MULTIVIT INJ. ADULT COMBO WITH VIT K 1 COMBO 10 ML VIAL IV SCH (16:03)
[2021-08-23] MEDS ORDERED: MEROPENEM 1 GM VIAL (RESTRICTED TO ID) IVPB ONE ×3 (04:07→15:51)
[2021-08-23] MEDS ORDERED: DEXTROSE 5%-WATER 100 ML IVPB ONE ×3 (04:07→15:52)
[2021-08-23] MEDS: MEROPENEM 1 GM in DEXTROSE 5%-WATER 100 ML IVPB SCH ×3 (04:17→17:48)
[2021-08-23] MEDS: VANCOMYCIN 1 GRAM (PRE-DOCKED) 1,000 MG/250 ML BAG IVPB SCH ×2 (05:14→17:25)
[2021-08-23] MEDS: INSULIN SLIDING SCALE (NOVOLOG) 1 VIAL SQ SCH ×4 (06:09→23:23)
[2021-08-23] MEDS: INSULIN (LEVEMIR) 100 UNITS/ML UNITS SQ SCH (06:09)
[2021-08-23 08:11] LABS: HEMATOCRIT 27.7 % (32.4-45.2); HEMOGLOBIN 9.1 GM/dL (10.7-15.3); MCH 30.7 pg (25.7-33.7); MCHC 32.8 g/dl (32.0-36.0); MEAN CELL VOLUME 93.7 fl (80-96); MEAN PLT VOLUME 9.8 fl (7.5-11.1); PLATELET COUNT 329 10^3/uL (134-434); RBC 2.96 M/mm3 (3.60-5.2); RDW 14.3 % (11.6-15.6); WHITE BLOOD COUNT 14.2 K/mm3 (4.0-10.0)
[2021-08-23 08:18] LABS: CALCIUM 8.6 mg/dL (8.5-10.1)
[2021-08-23 08:19] LABS: ALBUMIN 1.4 g/dl (3.4-5.0); BLOOD UREA NITROGEN 27.3 mg/dL (7-18); MAGNESIUM 1.8 mg/dL (1.8-2.4)
[2021-08-23 08:22] LABS: CREATININE 0.5 mg/dL (0.55-1.3)
[2021-08-23 08:23] LABS: BILIRUBIN,TOTAL 0.9 mg/dL (0.2-1)
[2021-08-23 08:24] LABS: TOT PROT 5.4 g/dl (6.4-8.2)
[2021-08-23] MEDS: MULTIVIT INJ. ADULT COMBO WITH VIT K 1 COMBO 10 ML VIAL IV SCH (09:00)
[2021-08-23] MEDS: ENOXAPARIN NA (PORCINE) 40 MG/0.4 ML DISP.SYRIN SQ SCH (09:00)
[2021-08-23] MEDS: POLYETHYLENE GLYCOL (HEALTHYLAX) 3350 17 GM PACKET PO SCH ×2 (09:00→21:25)
[2021-08-23] MEDS: AMINO ACIDS/PROTEIN HYDROLYS 30 ML LIQUID.PKT GT SCH ×2 (09:02→21:25)
[2021-08-23] MEDS: FUROSEMIDE 40 MG/4 ML INJECTABLE VIAL IVPUSH SCH (09:06)
[2021-08-23] MEDS: PANTOPRAZOLE SODIUM 40 MG VIAL IVPUSH SCH (09:07)
[2021-08-23] MEDS: BUDESONIDE/FORMETEROL FUMARATE 80/4.5 mcg INHALER IH SCH ×2 (09:07→21:25)
[2021-08-23 09:14] LABS: ARTERIAL BLD GAS O2 SATURATION 83.6 % (95-98); ARTERIAL BLOOD GAS BASE EXCESS -1.5 mmol/L (-2-2); ARTERIAL BLOOD GAS PO2 47.5 mmHg (80-100); ARTERIAL BLOOD GAS pH 7.399 (7.350-7.450)
[2021-08-23] MEDS ORDERED: RAPID SEQUENCE INTUBATION KIT NR ONE (09:14)
[2021-08-23 09:15] LABS: ANISOCYTOSIS 0; HELMET CELLS 0; HOWELL-JOLLY BODIES 0; MACROCYTOSIS 0; OVALOCYTE 0; PLATELET ESTIMATE NORMAL; ROULEAU 0; SICKELED CELLS 0; TARGET CELLS 0; TEAR DROP CELLS 0; TOXIC GRANULATION 0
[2021-08-23 09:18] LABS: ALLENS TEST POSITIVE
[2021-08-23] MEDS ORDERED: PROPOFOL 1,000,000 MCG/100 ML VIAL IVPB SCH (09:45)
[2021-08-23] MEDS ORDERED: ACETAMINOPHEN 1000 MG/100 ML BAG IVPB ONE (09:49)
[2021-08-23] MEDS: PROPOFOL 1,000,000 MCG/100 ML VIAL IVPB SCH (10:15)
[2021-08-23] MEDS ORDERED: MIDAZOLAM HCL 2 MG/2 ML SINGLE DOSE VIAL IVPUSH ONE (10:57)
[2021-08-23] MEDS ORDERED: MIDAZOLAM HCL 5 MG/1 ML Single Dose Vial ONE (10:59)
[2021-08-23] MEDS: FENTANYL NS IVPB 500 MCG/100 ML BAG IVPB SCH (11:00)
[2021-08-23 11:21] LABS: ARTERIAL BLD GAS O2 SATURATION 72.2 % (95-98); ARTERIAL BLOOD GAS BASE EXCESS -10.1 mmol/L (-2-2); ARTERIAL BLOOD GAS PO2 53.5 mmHg (80-100); ARTERIAL BLOOD GAS pH 7.064 (7.350-7.450)
[2021-08-23] MEDS ORDERED: ROCURONIUM BROMIDE 50 MG/5 ML VIAL IV ONE (11:21)
[2021-08-23 11:23] LABS: VENT MODE VENT; VENT RATE 31
[2021-08-23] MEDS ORDERED: SODIUM CHLORIDE 0.9% 500 ML INFUS.BAG IV ONE (12:02)
[2021-08-23] MEDS ORDERED: LACTATED RINGERS SOLUTION 1000 ML INFUS.BAG IV ONE (13:00)
[2021-08-23] MEDS: VASOPRESSIN 40 UNITS/100 ML BAG IV SCH (14:00)
[2021-08-23] MEDS ORDERED: ENOXAPARIN NA (PORCINE) 30 MG/0.3 ML DISP.SYRIN SQ ONE ×3 (14:17→16:00)
[2021-08-23] MEDS: NOREPINEPHRINE D5W PREMIX 16,000 MCG/500 ML BAG IVPB SCH (16:15)
[2021-08-23 18:38] LABS: EPI CELLS >36 /uL (0-25.1); HYALINE CASTS 29 /uL (0-3.1); URINE APPEARANCE TURBID; URINE BILIRUBIN 1+ (NEGATIVE); URINE COLOR ORANGE; URINE GLUCOSE (UA) NEGATIVE (NEGATIVE); URINE KETONE NEGATIVE (NEGATIVE); URINE LEUK ESTERASE 3+ (NEGATIVE); URINE NITRITE NEGATIVE (NEGATIVE); URINE PROTEIN 2+ (NEGATIVE); URINE WBC 1412 /uL (0-25.8)
[2021-08-23 19:41] LABS: URINE BACTERIA 36.7 /uL (0-1359); URINE RBC 3047.8 /uL (0-23.9); YEAST MODERATE (NEGATIVE)
[2021-08-23] MEDS: AMINO ACIDS 4.25%/D5W 1,000 ML IV SCH (20:32)
[2021-08-23] MEDS: CHLORHEXIDINE GLUCONATE 4% CLEANSER FOR DECOLONIZATION TP SCH (21:25)
[2021-08-23] MEDS: MUPIROCIN 2% TOPICAL OINTMENT FOR DECOLONIZATION NS SCH (23:05)
[2021-08-23] MEDS: ENOXAPARIN NA (PORCINE) 80 MG/0.8 ML DISP.SYRIN SQ SCH (23:06)
[2021-08-24] MEDS ORDERED: MEROPENEM 1 GM VIAL (RESTRICTED TO ID) IVPB ONE ×3 (02:00→17:41)
[2021-08-24] MEDS ORDERED: DEXTROSE 5%-WATER 100 ML IVPB ONE ×3 (02:00→17:41)
[2021-08-24] MEDS: MEROPENEM 1 GM in DEXTROSE 5%-WATER 100 ML IVPB SCH ×3 (02:17→17:45)
[2021-08-24] MEDS: AMINO ACIDS/PROTEIN HYDROLYS 30 ML LIQUID.PKT GT SCH ×3 (05:17→21:17)
[2021-08-24] MEDS: VANCOMYCIN 1 GRAM (PRE-DOCKED) 1,000 MG/250 ML BAG IVPB SCH ×2 (05:27→17:56)
[2021-08-24] MEDS: INSULIN SLIDING SCALE (NOVOLOG) 1 VIAL SQ SCH ×4 (07:31→21:21)
[2021-08-24 08:53] LABS: HEMATOCRIT 24.5 % (32.4-45.2); HEMOGLOBIN 7.9 GM/dL (10.7-15.3); MCH 30.9 pg (25.7-33.7); MCHC 32.1 g/dl (32.0-36.0); MEAN CELL VOLUME 96.1 fl (80-96); MEAN PLT VOLUME 10.1 fl (7.5-11.1); PLATELET COUNT 269 10^3/uL (134-434); RBC 2.55 M/mm3 (3.60-5.2); RDW 14.3 % (11.6-15.6); WHITE BLOOD COUNT 26.8 K/mm3 (4.0-10.0)
[2021-08-24 09:18] LABS: CALCIUM 8.1 mg/dL (8.5-10.1)
[2021-08-24 09:19] LABS: ALBUMIN 1.2 g/dl (3.4-5.0); BLOOD UREA NITROGEN 47.3 mg/dL (7-18)
[2021-08-24 09:22] LABS: CREATININE 1.1 mg/dL (0.55-1.3)
[2021-08-24] MEDS: FUROSEMIDE 40 MG/4 ML INJECTABLE VIAL IVPUSH SCH (09:44)
[2021-08-24] MEDS: ENOXAPARIN NA (PORCINE) 80 MG/0.8 ML DISP.SYRIN SQ SCH ×2 (09:44→21:16)
[2021-08-24] MEDS: MUPIROCIN 2% TOPICAL OINTMENT FOR DECOLONIZATION NS SCH ×2 (09:44→21:15)
[2021-08-24] MEDS: PANTOPRAZOLE SODIUM 40 MG VIAL IVPUSH SCH (09:45)
[2021-08-24] MEDS: BUDESONIDE/FORMETEROL FUMARATE 80/4.5 mcg INHALER IH SCH ×2 (09:46→21:17)
[2021-08-24 10:36] LABS: ARTERIAL BLD GAS O2 SATURATION 95.4 % (95-98); ARTERIAL BLOOD GAS BASE EXCESS -11.6 mmol/L (-2-2); ARTERIAL BLOOD GAS PO2 98.7 mmHg (80-100)
[2021-08-24 10:39] LABS: ALLENS TEST POSITIVE; ARTERIAL BLOOD GAS pH 7.141 (7.350-7.450)
[2021-08-24 10:40] LABS: VENT MODE A/C; VENT RATE 31
[2021-08-24] MEDS: SODIUM BICARBONATE 8.4% 50 MEQ/50 ML DISP.SYRIN IVPUSH SCH ×3 (11:19→22:37)
[2021-08-24] MEDS ORDERED: SODIUM BICARBONATE 8.4% - 75 MEQ in DEXTROSE 5%-WATER - 1,000 ML IV SCH (11:30)
[2021-08-24] MEDS: VASOPRESSIN 40 UNITS/100 ML BAG IV SCH ×2 (11:33→20:00)
[2021-08-24 11:38] LABS: INR 1.72 (0.83-1.09); PROTHROMBIN TIME (PATIENT) 19.9 SEC (9.7-13.0)
[2021-08-24 11:51] LABS: ANISOCYTOSIS 2+; MACROCYTOSIS 2+; PLATELET ESTIMATE NORMAL
[2021-08-24] MEDS: PROPOFOL 1,000,000 MCG/100 ML VIAL IVPB SCH ×2 (12:15→20:00)
[2021-08-24] MEDS: MULTIVIT INJ. ADULT COMBO WITH VIT K 1 COMBO 10 ML VIAL IV SCH (14:11)
[2021-08-24] MEDS: POLYETHYLENE GLYCOL (HEALTHYLAX) 3350 17 GM PACKET PO SCH ×2 (14:11→21:16)
[2021-08-24] MEDS ORDERED: LACTATED RINGERS SOLUTION 1000 ML INFUS.BAG IV ONE (14:26)
[2021-08-24] MEDS ORDERED: ROCURONIUM BROMIDE 500 MG/300 ML BAG IVPB SCH (15:30)
[2021-08-24] MEDS ORDERED: ROCURONIUM BROMIDE IVPB SCH (15:30)
[2021-08-24] MEDS: FENTANYL NS IVPB 500 MCG/100 ML BAG IVPB SCH (16:55)
[2021-08-24] MEDS: CHLORHEXIDINE GLUCONATE 4% CLEANSER FOR DECOLONIZATION TP SCH (21:16)
[2021-08-25] MEDS: NOREPINEPHRINE D5W PREMIX 16,000 MCG/500 ML BAG IVPB SCH ×2 (00:10→03:21)
[2021-08-25] MEDS ORDERED: MEROPENEM 1 GM VIAL (RESTRICTED TO ID) IVPB ONE ×3 (01:02→16:52)
[2021-08-25] MEDS ORDERED: DEXTROSE 5%-WATER 100 ML IVPB ONE ×3 (01:02→16:52)
[2021-08-25] MEDS: MEROPENEM 1 GM in DEXTROSE 5%-WATER 100 ML IVPB SCH ×4 (01:05→18:36)
[2021-08-25] MEDS ORDERED: ACETAMINOPHEN 325 MG TABLET (FP) PO PRN (01:13)
[2021-08-25] MEDS: PROPOFOL 1,000,000 MCG/100 ML VIAL IVPB SCH ×3 (02:20→17:17)
[2021-08-25] MEDS: VASOPRESSIN 40 UNITS/100 ML BAG IV SCH ×2 (03:22→04:56)
[2021-08-25] MEDS: FENTANYL NS IVPB 500 MCG/100 ML BAG IVPB SCH ×2 (03:23→14:00)
[2021-08-25] MEDS: SODIUM BICARBONATE 8.4% 50 MEQ/50 ML DISP.SYRIN IVPUSH SCH ×4 (04:57→23:39)
[2021-08-25] MEDS: AMINO ACIDS/PROTEIN HYDROLYS 30 ML LIQUID.PKT GT SCH ×3 (04:59→21:01)
[2021-08-25] MEDS: VANCOMYCIN 1 GRAM (PRE-DOCKED) 1,000 MG/250 ML BAG IVPB SCH ×2 (05:43→17:11)
[2021-08-25] MEDS: INSULIN SLIDING SCALE (NOVOLOG) 1 VIAL SQ SCH ×4 (06:11→21:26)
[2021-08-25 06:57] LABS: HEMATOCRIT 21.9 % (32.4-45.2); HEMOGLOBIN 7.1 GM/dL (10.7-15.3); MCH 30.5 pg (25.7-33.7); MCHC 32.4 g/dl (32.0-36.0); MEAN CELL VOLUME 94.1 fl (80-96); MEAN PLT VOLUME 9.8 fl (7.5-11.1); PLATELET COUNT 260 10^3/uL (134-434); RBC 2.33 M/mm3 (3.60-5.2); RDW 14.4 % (11.6-15.6)
[2021-08-25 07:00] LABS: ARTERIAL BLD GAS O2 SATURATION 98.5 % (95-98); ARTERIAL BLOOD GAS BASE EXCESS -2.9 mmol/L (-2-2); ARTERIAL BLOOD GAS PO2 154.5 mmHg (80-100); ARTERIAL BLOOD GAS pH 7.207 (7.350-7.450)
[2021-08-25 07:04] LABS: ALLENS TEST POSITIVE; VENT MODE A/C; VENT RATE 31
[2021-08-25 07:15] LABS: WHITE BLOOD COUNT 31.1 K/mm3 (4.0-10.0)
[2021-08-25 07:57] LABS: CHLORIDE 96 mmol/L (98-107); SODIUM 134 mmol/L (136-145)
[2021-08-25 07:59] LABS: CALCIUM 7.4 mg/dL (8.5-10.1)
[2021-08-25 08:00] LABS: ALBUMIN 1.1 g/dl (3.4-5.0); ANION GAP 15 MMOL/L (8-16); BLOOD UREA NITROGEN 64.1 mg/dL (7-18); CO2 22 mmol/L (21-32); GLUCOSE,RANDOM 157 mg/dL (74-106); MAGNESIUM 2.2 mg/dL (1.8-2.4)
[2021-08-25 08:03] LABS: SGOT/AST 78 U/L (15-37); SGPT/ALT 85 U/L (13-61)
[2021-08-25 08:04] LABS: TOT PROT 4.8 g/dl (6.4-8.2)
[2021-08-25 08:06] LABS: ALK PHOS 314 U/L (45-117)
[2021-08-25 08:39] LABS: PHOSPHOROUS > 9.0 mg/dL (2.5-4.9)
[2021-08-25] MEDS: ENOXAPARIN NA (PORCINE) 80 MG/0.8 ML DISP.SYRIN SQ SCH ×2 (09:25→21:00)
[2021-08-25] MEDS: PANTOPRAZOLE SODIUM 40 MG VIAL IVPUSH SCH (09:25)
[2021-08-25] MEDS: MUPIROCIN 2% TOPICAL OINTMENT FOR DECOLONIZATION NS SCH ×2 (09:30→21:01)
[2021-08-25] MEDS ORDERED: MULTIVIT INJ. ADULT COMBO WITH VIT K 1 COMBO 10 ML VIAL IV SCH ×2 (10:00→17:30)
[2021-08-25] MEDS: BUDESONIDE/FORMETEROL FUMARATE 80/4.5 mcg INHALER IH SCH ×2 (10:00→21:02)
[2021-08-25 10:08] LABS: ANISOCYTOSIS 2+; MACROCYTOSIS 0; PLATELET ESTIMATE NORMAL
[2021-08-25] MEDS: POLYETHYLENE GLYCOL (HEALTHYLAX) 3350 17 GM PACKET PO SCH ×3 (11:00→21:01)
[2021-08-25] MEDS ORDERED: AMINO ACIDS 4.25%/D5W 1,000 ML IV SCH (17:45)
[2021-08-25] MEDS: CHLORHEXIDINE GLUCONATE 4% CLEANSER FOR DECOLONIZATION TP SCH (21:01)
[2021-08-25 21:42] LABS: HEMATOCRIT 20.3 % (32.4-45.2); MCH 30.7 pg (25.7-33.7); MCHC 33.1 g/dl (32.0-36.0); MEAN CELL VOLUME 92.8 fl (80-96); MEAN PLT VOLUME 9.3 fl (7.5-11.1); PLATELET COUNT 229 10^3/uL (134-434); RBC 2.18 M/mm3 (3.60-5.2); RDW 14.7 % (11.6-15.6)
[2021-08-25 21:46] LABS: HEMOGLOBIN 6.7 GM/dL (10.7-15.3); WHITE BLOOD COUNT 32.1 K/mm3 (4.0-10.0)
[2021-08-26] MEDS ORDERED: DEXTROSE 5%-WATER 100 ML IVPB ONE ×3 (00:16→14:12)
[2021-08-26] MEDS ORDERED: MEROPENEM 1 GM VIAL (RESTRICTED TO ID) IVPB ONE ×3 (00:16→14:12)
[2021-08-26] MEDS: FENTANYL NS IVPB 500 MCG/100 ML BAG IVPB SCH ×3 (00:27→20:30)
[2021-08-26] MEDS: MEROPENEM 1 GM in DEXTROSE 5%-WATER 100 ML IVPB SCH ×3 (01:33→18:00)
[2021-08-26] MEDS: PROPOFOL 1,000,000 MCG/100 ML VIAL IVPB SCH ×3 (01:34→15:04)
[2021-08-26] MEDS: VASOPRESSIN 40 UNITS/100 ML BAG IV SCH ×3 (01:35→21:16)
[2021-08-26] MEDS: NOREPINEPHRINE D5W PREMIX 16,000 MCG/500 ML BAG IVPB SCH ×2 (01:36→14:23)
[2021-08-26] MEDS: VANCOMYCIN 1 GRAM (PRE-DOCKED) 1,000 MG/250 ML BAG IVPB SCH (04:48)
[2021-08-26] MEDS: SODIUM BICARBONATE 8.4% 50 MEQ/50 ML DISP.SYRIN IVPUSH SCH (04:48)
[2021-08-26 06:26] LABS: ARTERIAL BLD GAS O2 SATURATION 93.3 % (95-98); ARTERIAL BLOOD GAS PO2 86.4 mmHg (80-100)
[2021-08-26 06:35] LABS: ALLENS TEST POSITIVE
[2021-08-26 06:36] LABS: VENT MODE A/C; VENT RATE 30
[2021-08-26 06:39] LABS: ARTERIAL BLOOD GAS pH 7.159 (7.350-7.450)
[2021-08-26] MEDS: AMINO ACIDS/PROTEIN HYDROLYS 30 ML LIQUID.PKT GT SCH ×3 (06:40→21:17)
[2021-08-26] MEDS: INSULIN SLIDING SCALE (NOVOLOG) 1 VIAL SQ SCH ×4 (06:40→21:30)
[2021-08-26 07:19] LABS: HEMATOCRIT 25.1 % (32.4-45.2); HEMOGLOBIN 8.3 GM/dL (10.7-15.3); MCHC 33.2 g/dl (32.0-36.0); MEAN CELL VOLUME 90.5 fl (80-96); PLATELET COUNT 188 10^3/uL (134-434); RBC 2.77 M/mm3 (3.60-5.2); RDW 15.8 % (11.6-15.6)
[2021-08-26 07:20] LABS: WHITE BLOOD COUNT 30.9 K/mm3 (4.0-10.0)
[2021-08-26 08:21] LABS: CHLORIDE 90 mmol/L (98-107); SODIUM 131 mmol/L (136-145)
[2021-08-26 08:28] LABS: ARTERIAL BLD GAS O2 SATURATION 89.3 % (95-98); ARTERIAL BLOOD GAS BASE EXCESS -1.9 mmol/L (-2-2)
[2021-08-26 08:32] LABS: ALLENS TEST POSITIVE
[2021-08-26 08:34] LABS: ARTERIAL BLOOD GAS pH 7.074 (7.350-7.450); VENT RATE 32
[2021-08-26 08:36] LABS: ANION GAP 16 MMOL/L (8-16); BLOOD UREA NITROGEN 78.2 mg/dL (7-18); CALCIUM 7.4 mg/dL (8.5-10.1); CO2 25 mmol/L (21-32); CREATININE 2.8 mg/dL (0.55-1.3); GLUCOSE,RANDOM 184 mg/dL (74-106); MAGNESIUM 2.5 mg/dL (1.8-2.4)
[2021-08-26] MEDS ORDERED: FUROSEMIDE 100 MG/10 ML INJECTABLE VIAL IVPUSH ONE (08:41)
[2021-08-26] MEDS ORDERED: FUROSEMIDE 40 MG/4 ML INJECTABLE VIAL ONE (08:50)
[2021-08-26 09:06] LABS: PHOSPHOROUS 9.9 mg/dL (2.5-4.9)
[2021-08-26] MEDS: PANTOPRAZOLE SODIUM 40 MG VIAL IVPUSH SCH (09:37)
[2021-08-26] MEDS: POLYETHYLENE GLYCOL (HEALTHYLAX) 3350 17 GM PACKET PO SCH ×2 (09:38→21:15)
[2021-08-26] MEDS: MUPIROCIN 2% TOPICAL OINTMENT FOR DECOLONIZATION NS SCH ×2 (09:38→21:15)
[2021-08-26] MEDS: ENOXAPARIN NA (PORCINE) 80 MG/0.8 ML DISP.SYRIN SQ SCH ×2 (09:38→21:15)
[2021-08-26] MEDS: SODIUM BICARBONATE 8.4% - 150 MEQ in DEXTROSE 5%-WATER - 950 ML IVPB SCH ×2 (09:39→17:03)
[2021-08-26] MEDS: BUDESONIDE/FORMETEROL FUMARATE 80/4.5 mcg INHALER IH SCH ×2 (09:40→21:17)
[2021-08-26 10:30] LABS: ANISOCYTOSIS 0; HELMET CELLS 0; HOWELL-JOLLY BODIES 0; MACROCYTOSIS 0; OVALOCYTE 0; PLATELET ESTIMATE NORMAL; ROULEAU 0; SICKELED CELLS 0; TARGET CELLS 0; TEAR DROP CELLS 0; TOXIC GRANULATION 0
[2021-08-26] MEDS ORDERED: SODIUM CHLORIDE 250 ML IV PRN (14:01)
[2021-08-26] MEDS: CHLORHEXIDINE GLUCONATE 4% CLEANSER FOR DECOLONIZATION TP SCH (21:15)
[2021-08-27] MEDS: PROPOFOL 1,000,000 MCG/100 ML VIAL IVPB SCH ×4 (00:15→20:00)
[2021-08-27] MEDS: SODIUM BICARBONATE 8.4% - 150 MEQ in DEXTROSE 5%-WATER - 950 ML IVPB SCH ×3 (00:15→13:01)
[2021-08-27] MEDS ORDERED: MEROPENEM 1 GM VIAL (RESTRICTED TO ID) IVPB ONE ×3 (01:34→17:19)
[2021-08-27] MEDS ORDERED: DEXTROSE 5%-WATER 100 ML IVPB ONE ×3 (01:35→17:20)
[2021-08-27] MEDS: MEROPENEM 1 GM in DEXTROSE 5%-WATER 100 ML IVPB SCH ×3 (02:21→17:23)
[2021-08-27] MEDS: VASOPRESSIN 40 UNITS/100 ML BAG IV SCH ×2 (06:00→15:20)
[2021-08-27] MEDS: FENTANYL NS IVPB 500 MCG/100 ML BAG IVPB SCH ×2 (06:00→17:53)
[2021-08-27] MEDS: AMINO ACIDS/PROTEIN HYDROLYS 30 ML LIQUID.PKT GT SCH ×3 (06:01→21:35)
[2021-08-27] MEDS: INSULIN SLIDING SCALE (NOVOLOG) 1 VIAL SQ SCH ×4 (06:01→21:48)
[2021-08-27] MEDS: NOREPINEPHRINE D5W PREMIX 16,000 MCG/500 ML BAG IVPB SCH ×2 (06:31→19:36)
[2021-08-27 06:52] LABS: ARTERIAL BLOOD GAS BASE EXCESS 2.2 mmol/L (-2-2); ARTERIAL BLOOD GAS PO2 76.4 mmHg (80-100); ARTERIAL BLOOD GAS pH 7.269 (7.350-7.450)
[2021-08-27 06:54] LABS: ALLENS TEST POSITIVE; VENT MODE A/C; VENT RATE 36
[2021-08-27 07:26] LABS: HEMATOCRIT 23.1 % (32.4-45.2); HEMOGLOBIN 7.7 GM/dL (10.7-15.3); MCHC 33.2 g/dl (32.0-36.0); MEAN CELL VOLUME 90.3 fl (80-96); MEAN PLT VOLUME 9.7 fl (7.5-11.1); PLATELET COUNT 134 10^3/uL (134-434); RBC 2.56 M/mm3 (3.60-5.2); RDW 16.7 % (11.6-15.6); WHITE BLOOD COUNT 26.4 K/mm3 (4.0-10.0)
[2021-08-27 09:06] LABS: BLOOD UREA NITROGEN 57.5 mg/dL (7-18); CALCIUM 7.4 mg/dL (8.5-10.1); CREATININE 2.4 mg/dL (0.55-1.3); MAGNESIUM 2.2 mg/dL (1.8-2.4); PHOSPHOROUS 8.4 mg/dL (2.5-4.9)
[2021-08-27] MEDS: ENOXAPARIN NA (PORCINE) 80 MG/0.8 ML DISP.SYRIN SQ SCH ×2 (09:34→21:35)
[2021-08-27] MEDS: PANTOPRAZOLE SODIUM 40 MG VIAL IVPUSH SCH (09:36)
[2021-08-27] MEDS: BUDESONIDE/FORMETEROL FUMARATE 80/4.5 mcg INHALER IH SCH ×2 (10:00→21:33)
[2021-08-27] MEDS: POLYETHYLENE GLYCOL (HEALTHYLAX) 3350 17 GM PACKET PO SCH ×2 (11:00→21:36)
[2021-08-27] MEDS: MUPIROCIN 2% TOPICAL OINTMENT FOR DECOLONIZATION NS SCH ×2 (11:35→21:36)
[2021-08-27] MEDS: SODIUM BICARBONATE 8.4% 50 MEQ/50 ML VIAL IVPUSH SCH ×4 (15:28→23:21)
[2021-08-27] MEDS: CHLORHEXIDINE GLUCONATE 4% CLEANSER FOR DECOLONIZATION TP SCH (21:36)
[2021-08-28] MEDS ORDERED: MEROPENEM 1 GM VIAL (RESTRICTED TO ID) IVPB ONE ×2 (01:19→09:33)
[2021-08-28] MEDS ORDERED: DEXTROSE 5%-WATER 100 ML IVPB ONE ×2 (01:20→09:33)
[2021-08-28] MEDS: MEROPENEM 1 GM in DEXTROSE 5%-WATER 100 ML IVPB SCH ×3 (02:27→18:37)
[2021-08-28] MEDS: SODIUM BICARBONATE 8.4% 50 MEQ/50 ML VIAL IVPUSH SCH ×5 (02:28→21:52)
[2021-08-28] MEDS: PROPOFOL 1,000,000 MCG/100 ML VIAL IVPB SCH ×3 (03:38→17:08)
[2021-08-28] MEDS: FENTANYL NS IVPB 500 MCG/100 ML BAG IVPB SCH ×2 (04:18→14:54)
[2021-08-28] MEDS: AMINO ACIDS/PROTEIN HYDROLYS 30 ML LIQUID.PKT GT SCH ×3 (05:52→21:53)
[2021-08-28 06:09] LABS: ARTERIAL BLD GAS O2 SATURATION 94.9 % (95-98); ARTERIAL BLOOD GAS BASE EXCESS 5.6 mmol/L (-2-2); ARTERIAL BLOOD GAS PO2 82.4 mmHg (80-100); ARTERIAL BLOOD GAS pH 7.319 (7.350-7.450)
[2021-08-28 06:12] LABS: ALLENS TEST POSITIVE; VENT MODE A/C; VENT RATE 36
[2021-08-28] MEDS: INSULIN SLIDING SCALE (NOVOLOG) 1 VIAL SQ SCH ×4 (06:31→23:00)
[2021-08-28 07:54] LABS: HEMATOCRIT 22.3 % (32.4-45.2); HEMOGLOBIN 7.4 GM/dL (10.7-15.3); MCH 30.3 pg (25.7-33.7); MCHC 33.5 g/dl (32.0-36.0); MEAN CELL VOLUME 90.6 fl (80-96); MEAN PLT VOLUME 9.2 fl (7.5-11.1); PLATELET COUNT 109 10^3/uL (134-434); RBC 2.46 M/mm3 (3.60-5.2); RDW 16.2 % (11.6-15.6); WHITE BLOOD COUNT 28.5 K/mm3 (4.0-10.0)
[2021-08-28 08:11] LABS: CHLORIDE 89 mmol/L (98-107); SODIUM 136 mmol/L (136-145)
[2021-08-28 08:14] LABS: ALBUMIN 0.9 g/dl (3.4-5.0); ANION GAP 17 MMOL/L (8-16); CO2 30 mmol/L (21-32); GLUCOSE,RANDOM 141 mg/dL (74-106); MAGNESIUM 2.1 mg/dL (1.8-2.4)
[2021-08-28 08:17] LABS: SGOT/AST 296 U/L (15-37); SGPT/ALT 64 U/L (13-61)
[2021-08-28 08:18] LABS: BILIRUBIN,TOTAL 1.1 mg/dL (0.2-1); TOT PROT 4.5 g/dl (6.4-8.2)
[2021-08-28 08:19] LABS: ALK PHOS 302 U/L (45-117)
[2021-08-28 08:26] LABS: CALCIUM 6.8 mg/dL (8.5-10.1)
[2021-08-28] MEDS: VASOPRESSIN 40 UNITS in SODIUM CHLORIDE 40 UNITS/100 ML INFUS.BAG IVPB SCH ×2 (08:56→19:00)
[2021-08-28 09:11] LABS: ANISOCYTOSIS 2+; MACROCYTOSIS 1+; PLATELET ESTIMATE DECREASED
[2021-08-28] MEDS: PANTOPRAZOLE SODIUM 40 MG VIAL IVPUSH SCH (09:36)
[2021-08-28] MEDS: ENOXAPARIN NA (PORCINE) 80 MG/0.8 ML DISP.SYRIN SQ SCH ×2 (09:36→21:52)
[2021-08-28] MEDS: POLYETHYLENE GLYCOL (HEALTHYLAX) 3350 17 GM PACKET PO SCH ×2 (09:48→21:18)
[2021-08-28] MEDS: BUDESONIDE/FORMETEROL FUMARATE 80/4.5 mcg INHALER IH SCH ×2 (11:07→21:53)
[2021-08-28] MEDS: MUPIROCIN 2% TOPICAL OINTMENT FOR DECOLONIZATION NS SCH (11:12)
[2021-08-28] MEDS ORDERED: SODIUM BICARBONATE 8.4% - 50 ML ONE (21:21)
[2021-08-28] MEDS: CHLORHEXIDINE GLUCONATE 4% CLEANSER FOR DECOLONIZATION TP SCH (21:52)
[2021-08-29] MEDS ORDERED: MEROPENEM 1 GM VIAL (RESTRICTED TO ID) IVPB ONE ×4 (01:33→17:49)
[2021-08-29] MEDS ORDERED: DEXTROSE 5%-WATER 100 ML IVPB ONE ×3 (01:33→17:49)
[2021-08-29] MEDS: MEROPENEM 1 GM in DEXTROSE 5%-WATER 100 ML IVPB SCH ×3 (02:01→17:53)
[2021-08-29] MEDS: SODIUM BICARBONATE 8.4% 50 MEQ/50 ML VIAL IVPUSH SCH (05:15)
[2021-08-29] MEDS ORDERED: SODIUM BICARBONATE 8.4% - 50 ML ONE (05:20)
[2021-08-29] MEDS: INSULIN SLIDING SCALE (NOVOLOG) 1 VIAL SQ SCH ×3 (06:30→17:53)
[2021-08-29] MEDS: AMINO ACIDS/PROTEIN HYDROLYS 30 ML LIQUID.PKT GT SCH ×3 (06:30→22:03)
[2021-08-29] MEDS: VASOPRESSIN 40 UNITS in SODIUM CHLORIDE 40 UNITS/100 ML INFUS.BAG IVPB SCH (07:00)
[2021-08-29 07:19] LABS: HEMATOCRIT 22.8 % (32.4-45.2); HEMOGLOBIN 7.6 GM/dL (10.7-15.3); MCH 30.3 pg (25.7-33.7); MCHC 33.4 g/dl (32.0-36.0); MEAN CELL VOLUME 90.7 fl (80-96); MEAN PLT VOLUME 9.5 fl (7.5-11.1); PLATELET COUNT 96 10^3/uL (134-434); RBC 2.51 M/mm3 (3.60-5.2); RDW 16.2 % (11.6-15.6)
[2021-08-29 07:56] LABS: WHITE BLOOD COUNT 32.8 K/mm3 (4.0-10.0)
[2021-08-29 07:59] LABS: ALBUMIN 0.9 g/dl (3.4-5.0); ALK PHOS 310 U/L (45-117); ANION GAP 13 MMOL/L (8-16); BILIRUBIN,TOTAL 1.1 mg/dL (0.2-1); BLOOD UREA NITROGEN 93.4 mg/dL (7-18); CALCIUM 7.3 mg/dL (8.5-10.1); CHLORIDE 87 mmol/L (98-107); CO2 35 mmol/L (21-32); CREATININE 3.4 mg/dL (0.55-1.3); GLUCOSE,RANDOM 94 mg/dL (74-106); MAGNESIUM 2.4 mg/dL (1.8-2.4); SGOT/AST 244 U/L (15-37); SGPT/ALT 52 U/L (13-61); SODIUM 135 mmol/L (136-145); TOT PROT 4.6 g/dl (6.4-8.2)
[2021-08-29 08:37] LABS: PHOSPHOROUS 10.9 mg/dL (2.5-4.9)
[2021-08-29] MEDS: PROPOFOL 1,000,000 MCG/100 ML VIAL IVPB SCH ×3 (09:19→09:45)
[2021-08-29] MEDS ORDERED: FUROSEMIDE 40 MG/4 ML INJECTABLE VIAL IVPUSH ONE (09:34)
[2021-08-29] MEDS: FENTANYL NS IVPB 500 MCG/100 ML BAG IVPB SCH ×2 (10:31→17:26)
[2021-08-29] MEDS: POLYETHYLENE GLYCOL (HEALTHYLAX) 3350 17 GM PACKET PO SCH ×2 (10:34→22:02)
[2021-08-29] MEDS: ENOXAPARIN NA (PORCINE) 80 MG/0.8 ML DISP.SYRIN SQ SCH (10:34)
[2021-08-29] MEDS: BUDESONIDE/FORMETEROL FUMARATE 80/4.5 mcg INHALER IH SCH ×2 (10:36→22:02)
[2021-08-29] MEDS: PANTOPRAZOLE SODIUM 40 MG VIAL IVPUSH SCH (10:36)
[2021-08-29 11:51] LABS: ANISOCYTOSIS 0; MACROCYTOSIS 0; PLATELET ESTIMATE DECREASED
[2021-08-29] MEDS: CHLORHEXIDINE GLUCONATE 4% CLEANSER FOR DECOLONIZATION TP SCH (22:02)
[2021-08-30] MEDS: INSULIN SLIDING SCALE (NOVOLOG) 1 VIAL SQ SCH ×3 (00:14→11:42)
[2021-08-30] MEDS ORDERED: MEROPENEM 1 GM VIAL (RESTRICTED TO ID) IVPB ONE ×2 (02:01→09:35)
[2021-08-30] MEDS ORDERED: DEXTROSE 5%-WATER 100 ML IVPB ONE ×2 (02:02→09:35)
[2021-08-30] MEDS: MEROPENEM 1 GM in DEXTROSE 5%-WATER 100 ML IVPB SCH ×2 (02:20→09:41)
[2021-08-30] MEDS ORDERED: DEXTROSE 50%-WATER 25 GM/50 ML DISP.SYRIN ONE (06:32)
[2021-08-30] MEDS ORDERED: DEXTROSE 50%-WATER 25 GM/50 ML DISP.SYRIN IVPUSH ONE (06:32)
[2021-08-30] MEDS: AMINO ACIDS/PROTEIN HYDROLYS 30 ML LIQUID.PKT GT SCH ×2 (06:38→14:00)
[2021-08-30 07:07] LABS: HEMOGLOBIN 7.3 GM/dL (10.7-15.3); MCH 30.4 pg (25.7-33.7); MCHC 32.9 g/dl (32.0-36.0); MEAN CELL VOLUME 92.3 fl (80-96); MEAN PLT VOLUME 10.4 fl (7.5-11.1); PLATELET COUNT 95 10^3/uL (134-434); RBC 2.39 M/mm3 (3.60-5.2); RDW 15.8 % (11.6-15.6)
[2021-08-30] MEDS: VASOPRESSIN 40 UNITS in SODIUM CHLORIDE 40 UNITS/100 ML INFUS.BAG IVPB SCH (07:07)
[2021-08-30 07:24] LABS: WHITE BLOOD COUNT 37.4 K/mm3 (4.0-10.0)
[2021-08-30 07:55] LABS: ALBUMIN 0.9 g/dl (3.4-5.0); ALK PHOS 372 U/L (45-117); ANION GAP 19 MMOL/L (8-16); BILIRUBIN,TOTAL 1.6 mg/dL (0.2-1); CALCIUM 7.3 mg/dL (8.5-10.1); CHLORIDE 85 mmol/L (98-107); CO2 29 mmol/L (21-32); CREATININE 3.8 mg/dL (0.55-1.3); GLUCOSE,RANDOM 59 mg/dL (74-106); MAGNESIUM 2.5 mg/dL (1.8-2.4); SGOT/AST 224 U/L (15-37); SGPT/ALT 44 U/L (13-61); SODIUM 133 mmol/L (136-145); TOT PROT 4.5 g/dl (6.4-8.2)
[2021-08-30] MEDS: FENTANYL NS IVPB 500 MCG/100 ML BAG IVPB SCH ×2 (08:00→14:30)
[2021-08-30 09:20] LABS: ANISOCYTOSIS 0; MACROCYTOSIS 1+; PLATELET ESTIMATE DECREASED
[2021-08-30] MEDS: PANTOPRAZOLE SODIUM 40 MG VIAL IVPUSH SCH (09:41)
[2021-08-30] MEDS ORDERED: ENOXAPARIN NA (PORCINE) 40 MG/0.4 ML DISP.SYRIN SQ SCH (10:00)
[2021-08-30] MEDS ORDERED: ENOXAPARIN NA (PORCINE) 30 MG/0.3 ML DISP.SYRIN SQ SCH (10:00)
[2021-08-30 10:31] LABS: PHOSPHOROUS 12.2 mg/dL (2.5-4.9)
[2021-08-30] MEDS: POLYETHYLENE GLYCOL (HEALTHYLAX) 3350 17 GM PACKET PO SCH (10:50)
[2021-08-30] MEDS ORDERED: SODIUM CHLORIDE 250 ML IV PRN (11:17)
[2021-08-30 11:31] LABS: ANION GAP 22 MMOL/L (8-16); BLOOD UREA NITROGEN 104.5 mg/dL (7-18); CALCIUM 7.2 mg/dL (8.5-10.1); CHLORIDE 84 mmol/L (98-107); CO2 26 mmol/L (21-32); CREATININE 4.1 mg/dL (0.55-1.3); GLUCOSE,RANDOM 82 mg/dL (74-106); SODIUM 133 mmol/L (136-145)
[2021-08-30] MEDS: BUDESONIDE/FORMETEROL FUMARATE 80/4.5 mcg INHALER IH SCH (11:59)
[2021-08-30] MEDS: PROPOFOL 1,000,000 MCG/100 ML VIAL IVPB SCH (13:32)
[2021-08-30] MEDS ORDERED: MORPHINE SULFATE/0.9% NACL/PF 100 MG/100 ML BAG IVPB SCH (14:00)
[2021-08-30 16:04] VITALS: BP 120/41; PULSE 78; TEMP 96.1
== END 2021-08-30 18:34 | disposition expired | DRG 207 ==
LOC: JER 14:38 → JERBED 17:05 → J6S 21:03 → J4S 07-30 23:29 → JICU 07-31 08:51 → J2W 08-18 21:36
PROVIDERS: ADMIT Internal Medicine; ATTEND Internal Medicine
PROC: XW033E5 Introduction of Remdesivir Anti-infective into Peripheral Vein, Percutaneous Approach, New Technology Group 5 (ICD-10-PCS; 2021-07-29)
PROC: 5A1955Z Respiratory Ventilation, Greater than 96 Consecutive Hours (ICD-10-PCS; principal; 2021-07-31)
PROC: 0BH17EZ Insertion of Endotracheal Airway into Trachea, Via Natural or Artificial Opening (ICD-10-PCS; 2021-07-31)
PROC: 05HN33Z Insertion of Infusion Device into Left Internal Jugular Vein, Percutaneous Approach (ICD-10-PCS; 2021-08-07)
PROC: B544ZZA Ultrasonography of Left Jugular Veins, Guidance (ICD-10-PCS; 2021-08-07)
PROC: 05HM33Z Insertion of Infusion Device into Right Internal Jugular Vein, Percutaneous Approach (ICD-10-PCS; 2021-08-23)
PROC: B543ZZA Ultrasonography of Right Jugular Veins, Guidance (ICD-10-PCS; 2021-08-23)
PROC: 30233N1 Transfusion of Nonautologous Red Blood Cells into Peripheral Vein, Percutaneous Approach (ICD-10-PCS; 2021-08-25)
PROC: B544ZZA Ultrasonography of Left Jugular Veins, Guidance (ICD-10-PCS; 2021-08-26)
PROC: 05HN33Z Insertion of Infusion Device into Left Internal Jugular Vein, Percutaneous Approach (ICD-10-PCS; 2021-08-26)
DX: U07.1 COVID-19 (principal); J12.82 Pneumonia due to coronavirus disease 2019; J80 Acute respiratory distress syndrome; R65.21 Severe sepsis with septic shock; A41.01 Sepsis due to Methicillin susceptible Staphylococcus aureus; N17.9 Acute kidney failure, unspecified; M62.82 Rhabdomyolysis; E87.0 Hyperosmolality and hypernatremia; E87.2 Acidosis; J10.1 Influenza due to other identified influenza virus with other respiratory manifestations; I95.9 Hypotension, unspecified; D72.829 Elevated white blood cell count, unspecified; E87.5 Hyperkalemia; D64.9 Anemia, unspecified; K21.9 Gastro-esophageal reflux disease without esophagitis
CPT/HCPCS: 31500; 36415; 36430; 36600; 71045-TC-FY; 74018-TC-FY; 76705-TC; 76775-TC; 80048; 80053; 81003; 82248; 82272; 82550; 82553; 82570; 82728; 82803; 82962; 83605; 83615; 83735; 84100; 84478; 84484; 85025; 85027; 85379; 85610; 85730; 86140; 86480; 86705; 86708; 86803; 86850; 86900; 86901; 86922; 87040; 87070; 87077; 87086; 87186; 87205; 87340; 87389; 87517; 87804; 87807; 87902; 93005; 93010; 94002; 94660; 97116-GP; 97161-GP; 99285-25; C9399; C9803; G0480; J1100; J1644; J3262; J3490; P9058; U0003; U0005